=== PATIENT | male | born 1970 | race Caucasian/White ===

== ENCOUNTER 2019-01-15 20:59 | Emergency (ER) | payer MEDICARE, MEDICAID ==
[~2019-01-15] VITALS: Ht 171.6 cm; Wt 104.0 kg
--- NOTE | 2019-01-15 21:42 | ED General ---
General Chief Complaint: Abdominal/GI Problems Stated Complaint: WEAKNESS,DEHYDRATION SYMPTOMS,DIARRHEA Nursing Triage Note: PT. REPORTEDHIS WHOLE BODY HURTS, HE HAS HAD DIARREHA FOR 3 DAYS. PT. REPORTED HE USED METH A FEW DAYS AGO. Nursing Sepsis Screen: No Definite Risk Source of Information: Patient Exam Limitations: No Limitations History of Present Illness Date Seen by Provider: Jan 15, 2019 Time Seen by Provider: 21:25 Initial Comments Patient presents with 1 week of diarrhea and intermittent abdominal cramping without significant pain. Also states he's been peen about every 5 minutes and has been unusually thirsty. Currently denies any abdominal pain, nausea vomiting, fever or chills. History of colon cancer with bowel resection over one year ago. Recently saw his oncologist and had a normal CT scan just a couple weeks ago of his chest abdomen and pelvis. Fm Hx DM Allergies and Home Medications Allergies Coded Allergies: No Known Drug Allergies (Unverified , 01/15/19) Home Medications Metformin HCl 500 Mg Tablet, 500 MG PO DAILY Prescribed by: AMBER HERNANDEZ on 01/15/19 1564 Patient Home Medication List Home Medication List Reviewed: Yes Review of Systems Review of Systems Constitutional: see HPI; No fever; malaise; No weakness, No weight gain, No weight loss EENTM: no symptoms reported Respiratory: No cough, No dyspnea on exertion Cardiovascular: No chest pain, No palpitations, No syncope Gastrointestinal: No abdominal pain; diarrhea; No nausea, No vomiting Genitourinary: see HPI; No dysuria; frequency; No hematuria, No hesitancy Musculoskeletal: No back pain, No joint pain Past Zjgjhmw-Mvonug-Ivubgr Hx Past Med/Social Hx: Reviewed Nursing Past Med/Soc Hx Patient Social History Recent Foreign Travel: No Contact w/Someone Who Travel: No Recent Infectious Disease Expo: No Recent Hopitalizations: No Physical Abuse: No Sexual Abuse: No Mistreated: No Fear: No Seasonal Allergies Seasonal Allergies: No Past Medical History Surgeries: Yes Abdominal Respiratory: No Cardiac: No Neurological: No Sexually Transmitted Disease: No HIV/AIDS: No Genitourinary: No Gastrointestinal: No Musculoskeletal: Yes Fibromyalgia Endocrine: No HEENT: No Cancer: Yes Colon Did You Recieve Any Treatments: Yes What Type of Treatment Did You: Chemotherapy Psychosocial: No Integumentary: No Blood Disorders: No Physical Exam Vital Signs Vital Signs - First Documented 01/15/19 21:15 Temp 36.0 Pulse 93 Resp 20 B/P (MAP) 156/99 (118) Pulse Ox 97 O2 Delivery Room Air Capillary Refill : Less Than 3 Seconds Height, Weight, BMI Height: '" Weight: lbs. oz. kg; 35.00 BMI Method: General Appearance: No Apparent Distress, WD/WN HEENT: Normal ENT Inspection Respiratory: Chest Non Tender, Lungs Clear Cardiovascular: Regular Rate, Rhythm, No Edema Gastrointestinal: Normal Bowel Sounds, Non Tender, Distended; No Guarding, No Rebound Back: Normal Inspection, No CVA Tenderness, No Vertebral Tenderness Skin: Normal Color, Warm/Dry Progress/Results/Core Measures Suspected Sepsis Recent Fever Within 48 Hours: No Infection Criteria Present: None New/Unexplained Altered Menta: No Sepsis Screen: No Definite Risk SIRS Temperature: Pulse: 93 Respiratory Rate: 20 Laboratory Tests 01/15/19 21:44: White Blood Count 7.4 Blood Pressure 156 /99 Mean: 118 Laboratory Tests 01/15/19 21:44: Creatinine 0.81, Platelet Count 233, Total Bilirubin 0.2 Results/Orders Lab Results Laboratory Tests Test 01/15/19 21:36 01/15/19 21:44 Range/Units Urine Color YELLOW Urine Clarity CLEAR Urine pH 6.0 5-9 Urine Specific [place] 1.010 L 1.016-1.022 Urine Protein NEGATIVE NEGATIVE Urine Glucose (UA) 3+ H NEGATIVE Urine Ketones NEGATIVE NEGATIVE Urine Nitrite NEGATIVE NEGATIVE Urine Bilirubin NEGATIVE NEGATIVE Urine Urobilinogen 0.2 < = 1.0 MG/DL Urine Leukocyte Esterase NEGATIVE NEGATIVE Urine RBC (Auto) NEGATIVE NEGATIVE Urine RBC 0-2 /HPF Urine WBC NONE /HPF Urine Squamous Epithelial Cells RARE /HPF Urine Crystals NONE /LPF Urine Bacteria NEGATIVE /HPF Urine Casts NONE /LPF Urine Mucus NEGATIVE /LPF Urine Culture Indicated NO White Blood Count 7.4 4.3-11.0 10^3/uL Red Blood Count 5.02 4.35-5.85 10^6/uL Hemoglobin 15.8 13.3-17.7 G/DL Hematocrit 45 40-54 % Mean Corpuscular Volume 90 80-99 FL Mean Corpuscular Hemoglobin 31 25-34 PG Mean Corpuscular Hemoglobin Concent 35 32-36 G/DL Red Cell Distribution Width 12.6 10.0-14.5 % Platelet Count 233 130-400 10^3/uL Mean Platelet Volume 9.6 7.4-10.4 FL Neutrophils (%) (Auto) 58 42-75 % Lymphocytes (%) (Auto) 31 12-44 % Monocytes (%) (Auto) 8 0-12 % Eosinophils (%) (Auto) 3 0-10 % Basophils (%) (Auto) 1 0-10 % Neutrophils # (Auto) 4.3 1.8-7.8 X 10^3 Lymphocytes # (Auto) 2.3 1.0-4.0 X 10^3 Monocytes # (Auto) 0.6 0.0-1.0 X 10^3 Eosinophils # (Auto) 0.2 0.0-0.3 10^3/uL Basophils # (Auto) 0.0 0.0-0.1 10^3/uL Sodium Level 130 L 135-145 MMOL/L Potassium Level 4.4 3.6-5.0 MMOL/L Chloride Level 92 L 98-107 MMOL/L Carbon Dioxide Level 23 21-32 MMOL/L Anion Gap 15 H 5-14 MMOL/L Blood Urea Nitrogen 17 7-18 MG/DL Creatinine 0.81 0.60-1.30 MG/DL Estimat Glomerular Filtration Rate > 60 BUN/Creatinine Ratio 21 Glucose Level 589 *H 70-105 MG/DL Calcium Level 10.2 H 8.5-10.1 MG/DL Corrected Calcium 9.8 8.5-10.1 MG/DL Total Bilirubin 0.2 0.1-1.0 MG/DL Aspartate Amino Transf (AST/SGOT) 33 5-34 U/L Alanine Aminotransferase (ALT/SGPT) 47 0-55 U/L Alkaline Phosphatase 157 H 40-136 U/L Total Protein 8.6 H 6.4-8.2 GM/DL Albumin 4.5 3.2-4.5 GM/DL My Orders Orders - AMBER HERNANDEZ DO Ed Iv/Invasive Line Start (01/15/19 21:33) Cbc With Automated Diff (01/15/19 21:33) Comprehensive Metabolic Panel (01/15/19 21:33) Urinalysis (01/15/19 21:33) Ns Iv 1000 Ml (Sodium Chloride 0.9%) (01/15/19 22:00) Ns Iv 1000 Ml (Sodium Chloride 0.9%) (01/15/19 22:30) Ns Iv 1000 Ml (Sodium Chloride 0.9%) (01/15/19 22:30) Vital Signs/I&O 01/15/19 01/15/19 21:15 22:59 Temp 36.0 36.5 Pulse 93 88 Resp 20 20 B/P (MAP) 156/99 (118) 145/88 Pulse Ox 97 98 O2 Delivery Room Air Room Air 01/16/19 00:00 Intake Total 1000 ml Balance 1000 ml Capillary Refill : Less Than 3 Seconds Blood Pressure Mean: 118 POS Progress Note : Progress Note discussed NEW onset DM II. Spent time discussing dietary changes necessary immediately. Admits he drinks a lot of sweetened beverages. Advised f/u w PCP, Dr Hernandez in < 1 wk to discuss mgmt. of his diabetes. Discussed starting dose of Metformin to take daily Departure Impression Primary Impression: Hyperglycemia without ketosis Additional Impression: New onset type 2 diabetes mellitus Disposition: 01 HOME, SELF-CARE Condition: Improved Departure-Patient Inst. Decision time for Depature: 22:24 Referrals: NO,LOCAL PHYSICIAN (PCP/Family) Primary Care Physician Patient Instructions: Diabetes Diet , Preventing Type 2 Diabetes, Diabetic Meal Planning Scripts Metformin HCl (Glucophage) 500 Mg Tablet 500 MG PO DAILY, #30 TAB Prov: AMBER HERNANDEZ DO 01/15/19 AMBER HERNANDEZ DO Jan 15, 2019 21:42 POS
[2019-01-15 21:47] LABS: CLARITY,URINE CLEAR; COLOR,URINE YELLOW
[2019-01-15 21:48] LABS: BACTERIA,URINE NEGATIVE /HPF; BILIRUBIN,URINE NEGATIVE (NEGATIVE); GLUCOSE, URINE (UA) 3+ (NEGATIVE); KETONES,URINE NEGATIVE (NEGATIVE); LEUKOCYTE ESTERASE ,URINE NEGATIVE (NEGATIVE); NITRITE,URINE NEGATIVE (NEGATIVE); PROTEIN,URINE NEGATIVE (NEGATIVE); RBC,URINE 0-2 /HPF; SQUAMOUS EPITHELIAL CELL,UR RARE /HPF
[2019-01-15 21:49] LABS: HEMATOCRIT 45 % (40-54); HEMOGLOBIN 15.8 G/DL (13.3-17.7); MEAN CORPUSCULAR HEMOGLOBIN 31 PG (25-34); MEAN CORPUSCULAR HGB CONC 35 G/DL (32-36); MEAN CORPUSCULAR VOLUME 90 FL (80-99); PLATELET COUNT 233 10^3/uL (130-400); RED CELL DISTRIBUTION WIDTH 12.6 % (10.0-14.5); WHITE BLOOD COUNT 7.4 10^3/uL (4.3-11.0)
[2019-01-15 21:50] LABS: BASOPHILS % (AUTO) 1 % (0-10); EOSINOPHILS # (AUTO) 0.2 10^3/uL (0.0-0.3); EOSINOPHILS % (AUTO) 3 % (0-10); LYMPHOCYTES # (AUTO) 2.3 X 10^3 (1.0-4.0); LYMPHOCYTES % (AUTO) 31 % (12-44); MEAN PLATELET VOLUME 9.6 FL (7.4-10.4); MONOCYTES # (AUTO) 0.6 X 10^3 (0.0-1.0); MONOCYTES % (AUTO) 8 % (0-12); NEUTROPHILS # (AUTO) 4.3 X 10^3 (1.8-7.8); NEUTROPHILS % (AUTO) 58 % (42-75)
[2019-01-15] MEDS ORDERED: NS IV 1000 ML 1,000 ML IV SCH ×3 (22:00→22:30)
--- NOTE | 2019-01-15 22:08 | NUR ---
PT. REQUESTING WATER WHICH HE RECEIVED. PT. HAS SAID SEVERAL TIMES HE JUST WANTS TO GO BUT THEN CHANGES HIS MIND AND LETS THIS RN CONTINUE TO TREAT HIM SUCH START THE IV, GET LABS, AND GIVE IV FLUIDS.
[2019-01-15 22:10] LABS: ALANINE AMINOTRANSFERASE 47 U/L (0-55); ALKALINE PHOSPHATASE 157 U/L (40-136); BILIRUBIN,TOTAL 0.2 MG/DL (0.1-1.0); BUN/CREATININE RATIO 21; CALCIUM 10.2 MG/DL (8.5-10.1); CARBON DIOXIDE 23 MMOL/L (21-32); CHLORIDE 92 MMOL/L (98-107); CREATININE SERUM 0.81 MG/DL (0.60-1.30); GFR ESTIMATED > 60; POTASSIUM 4.4 MMOL/L (3.6-5.0); SODIUM 130 MMOL/L (135-145)
[2019-01-15 22:11] LABS: ALBUMIN 4.5 GM/DL (3.2-4.5); TOTAL PROTEIN 8.6 GM/DL (6.4-8.2)
[2019-01-15 22:12] LABS: GLUCOSE 589 MG/DL (70-105)
[2019-01-15] MEDS ORDERED: METF500T PO (22:24)
[2019-01-15 22:59] VITALS: BP 145/88
--- OUTSIDE RECORDS SUMMARY | 2019-02-10 17:37 | XMS REPORT | Continuity of Care Document ---
Author Organization Unknown Address Unknown Phone Unavailable Allergies Active Description Code Type Severity Reaction Onset Reported/Identified Relationship to Patient Clinical Status Yes No Known Drug Allergies [id number] Drug Allergy Unknown N/A 01/15/2019 Medications There is no data. Problems There is no data. Procedures There is no data. Results Test Result Range Complete urinalysis with reflex to cultu re - 01/15/19 21:36 Urine color determination YELLOW NRG Urine clarity determination CLEAR NR G Urine pH measurement by test strip 6.0 5-9 Specific gravity of urine by test strip 1.010 1.016-1.022 Urine protein assay by test strip, semi-quantitative NEGATIVE NEGATIVE Urine glucose detection by automated test strip 3+ NEGATIVE Erythrocytes detection in urine sediment by light micr oscopy NEGATIVE NEGATIVE Urine ketones detection by automated test strip NE GATIVE NEGATIVE Urine nitrite detection by test strip NEGATIVE NEGATIVE Urine total bilirubin detection by test strip NEGA TIVE NEGATIVE Urine urobilinogen measurement by automated test strip (mass/volume) 0.2 mg/dL < = 1.0 Urine leukocyte esterase detection by dipstick NEG ATIVE NEGATIVE Automated urine sediment erythrocyte cou nt by microscopy (number/high power field) [HPF] NRG Automated urine sediment leukocyte count by microscopy (number/high power field) NONE NRG Bacteria detection in urine sediment by light microsco py NEGATIVE NRG Squamous epithelial cells detection in u rine sediment by light microscopy RARE NRG Crystals detection in urine sediment by light microsco py NONE NRG Casts detection in urine sediment by light microscopy NONE NRG Mucus detection in urine sediment by light microscopy NEGATIVE NRG Complete urinalysis with reflex to culture NO NRG Complete blood count (CBC) with automate d white blood cell (WBC) differential - 01/15/19 21:44 Blood leukocytes automated count (number/volume) 7.4 10*3/uL 4.3-11.0 Blood erythrocytes automated count (number/volume) 5.02 10*6/uL 4.35-5.85 Venous blood hemoglobin measurement (mass/volume) 15.8 g/dL 13.3-17.7 Blood hematocrit (volume fraction) 45 % 40-54 Automated erythrocyte mean corpuscular volume 90 [ foz_us] 80-99 Automated erythrocyte mean corpuscular h emoglobin (mass per erythrocyte) 31 pg 25-34 Automated erythrocyte mean corpuscular h emoglobin concentration measurement (mass/volume) 35 g/dL 32-36 Automated erythrocyte distribution width ratio 12. 6 % 10.0- 14.5 Automated blood platelet count (count/volume) 233 10*3/uL 130-400 Automated blood platelet mean volume measurement 9.6 [foz_us] 7.4-10.4 Automated blood neutrophils/100 leukocytes 58 % 42-75 Automated blood lymphocytes/100 leukocytes 31 % 12-44 Blood monocytes/100 leukocytes 8 % 0-12 Automated blood eosinophils/100 leukocytes 3 % 0-10 Automated blood basophils/100 leukocytes 1 % 0-10 Blood neutrophils automated count (number/volume) 4.3 10*3 1.8-7.8 Blood lymphocytes automated count (number/volume) 2.3 10*3 1.0-4.0 Blood monocytes automated count (number/volume) 0. 6 10*3 0.0-1.0 Automated eosinophil count 0.2 10*3/uL 0 .0-0.3 Automated blood basophil count (count/volume) 0.0 10*3/uL 0.0-0.1 Comprehensive metabolic panel - 01/15/19 21:44 Serum or plasma sodium measurement (moles/volume) 130 mmol/L 135-145 Serum or plasma potassium measurement (moles/volume) 4.4 mmol/L 3.6-5.0 Serum or plasma chloride measurement (moles/volume) 92 mmol/L 98-107 Carbon dioxide 23 mmol/L 21-32 Serum or plasma anion gap determination (moles/volume) 15 mmol/L 5-14 Serum or plasma urea nitrogen measurement (mass/volume ) 17 mg/dL 7-18 Serum or plasma creatinine measurement (mass/volume) 0.81 mg/dL 0.60-1.30 Serum or plasma urea nitrogen/creatinine mass ratio 21 NRG Serum or plasma creatinine measurement w ith calculation of estimated glomerular filtration rate > NRG Serum or plasma glucose measurement (mass/volume) 589 mg/dL 70-105 Serum or plasma calcium measurement (mass/volume) 10.2 mg/dL 8.5-10.1 Serum or plasma total bilirubin measurement (mass/volu me) 0.2 mg/dL 0.1-1.0 Serum or plasma alkaline phosphatase evangelina surement (enzymatic activity/volume) 157 U/L 40-136 Serum or plasma aspartate aminotransfera se measurement (enzymatic activity/volume) 33 U/L 5-34 Serum or plasma alanine aminotransferase measurement (enzymatic activity/volume) 47 U/L 0-55 Serum or plasma protein measurement (mass/volume) 8.6 g/dL 6.4-8.2 Serum or plasma albumin measurement (mass/volume) 4.5 g/dL 3.2-4.5 CALCIUM CORRECTED 9.8 mg/dL 8.5-10.1 Capillary blood glucose measurement by g lucometer (mass/volume) - 01/15/19 22:56 Capillary blood glucose measurement by glucometer (mas s/volume) 437 mg/dL 70-110 LIPID PANEL - 01/20/19 13:15 CHOLESTEROL, TOTAL 299 mg/dL <200 HDL CHOLESTEROL 34 mg/dL >40 TRIGLYCERIDES 1522 mg/dL <150 LDL-CHOLESTEROL mg/dL (calc) NRG CHOL/HDLC RATIO 8.8 (calc) <5.0 NON HDL CHOLESTEROL 265 mg/dL (calc) <13 0 CMP - 01/20/19 13:15 GLUCOSE 455 mg/dL 65-139 UREA NITROGEN (BUN) 18 mg/dL 7-25 CREATININE 0.96 mg/dL 0.70-1.33 eGFR NON-AFR. KOSOVAN 92 mL/min/1.73m2 > OR = 60 eGFR 106 mL/min/1.73m2 > OR = 60 BUN/CREATININE RATIO NOT APPLICABLE (calc) 6-22 SODIUM 131 mmol/L 135-146 POTASSIUM 5.2 mmol/L 3.5-5.3 CHLORIDE 96 mmol/L 98-110 CARBON DIOXIDE 26 mmol/L 20-32 CALCIUM 9.3 mg/dL 8.6-10.3 PROTEIN, TOTAL 7.2 g/dL 6.1-8.1 ALBUMIN 4.0 g/dL 3.6-5.1 GLOBULIN 3.2 g/dL (calc) 1.9-3.7 ALBUMIN/GLOBULIN RATIO 1.3 (calc) 1.0-2. 5 BILIRUBIN, TOTAL 0.3 mg/dL 0.2-1.2 ALKALINE PHOSPHATASE 131 U/L 40-115 AST 22 U/L 10-35 ALT 33 U/L 9-46 INSULIN LEVEL - 01/20/19 13:17 INSULIN 16.5 uIU/mL 2.0-19.6 Encounters ACCT No. Visit Date/Time Discharge Status Pt. Type Provider Facility Loc./Unit Complaint [id number] 07/16/2018 10:00:00 07/16/2018 23:59:5 9 CLS Outpatient SELF, COTREZ [facility] [id number] 01/20/2019 11:15:00 Document Registration [id number] 01/15/2019 21:03:00 019 22:59:00 DIS Emergency AMBER HERNANDEZ DO [facility] ER FS WEAKNESS,DEHYDR ATION SYMPTOMS,DIARRHEA
== END 2019-01-15 22:59 | disposition home or self-care (01) ==
LOC: ER FS 21:03
DX: E11.65 Type 2 diabetes mellitus with hyperglycemia (principal); M79.7 Fibromyalgia; Z85.038 Personal history of other malignant neoplasm of large intestine; Z79.84 Long term (current) use of oral hypoglycemic drugs
CPT/HCPCS: 36415; 80053; 81000; 82962; 85025

== ENCOUNTER 2019-04-27 11:08 | Emergency (ER) | payer MEDICARE, MEDICAID ==
[~2019-04-27] VITALS: Ht 177 cm; Wt 103.3 kg
[~2019-04-27 11:08] MED LIST: METF500T PO
[2019-04-27] MEDS ORDERED: NS IV 1000 ML 1,000 ML IV SCH (11:30)
[2019-04-27] MEDS ORDERED: ONDANSETRON 4 MG/2 ML (SDV) Z0FRAN IVP ONE (11:30)
--- NOTE | 2019-04-27 11:37 | ED GI ---
General Chief Complaint: Abdominal/GI Problems Stated Complaint: NAUSEA Nursing Triage Note: ARRIVED VIA AMB TO ROOM 06 WITH COMPLAINTS OF N/D STARTING YESTERDAY. STATES HIS BREATH TASTES LIKES EGGS. Sepsis Screen: No Definite Risk Source of Information: Patient Exam Limitations: No Limitations History of Present Illness Date Seen by Provider: Apr 27, 2019 Time Seen by Provider: 11:10 Initial Comments The patient is a 48-year-old male who presents for evaluation of nausea and diarrhea (1 episode only) which started yesterday. He reports that he is a eze-dzjvxym-ysvoxhchd diabetic and has not checked his blood sugar in "a while". His blood sugar upon arrival was 138. He reports nausea but no vomiting. He was having some non-focal mild abdominal discomfort yesterday but none currently. He denies fevers or chills, chest pain or shortness of breath, back or flank pain, urinary complaints, dizziness, palpitations, productive cough, headache, neck pain, or syncope. He states that he feels fatigued. He is alert and oriented 4, calm, and appears to be in no distress at this time. He also reports a followed her to his breath. Timing/Duration: 1 Day Severity/Quality: Moderate Location: Generalized Abdomen (mild, not currently present) Radiation: No Radiation Associated Symptoms: Fatigue, Nausea/Vomiting (nausea only) Allergies and Home Medications Allergies Coded Allergies: No Known Drug Allergies (Unverified , 01/15/19) Home Medications Metformin HCl 500 Mg Tablet, 500 MG PO DAILY Prescribed by: AMBER HERNANDEZ on 01/15/19 7393 Patient Home Medication List Home Medication List Reviewed: Yes Review of Systems Review of Systems Constitutional: weakness (fatigue) EENTM: No Symptoms Reported Respiratory: No Symptoms Reported; Denies Shortness of Air Cardiovascular: No Symptoms Reported; Denies Chest Pain Gastrointestinal: Abdominal Pain (yesterday, not currently), Nausea; Denies Vomiting Genitourinary: No Symptoms Reported Musculoskeletal: no symptoms reported Skin: no symptoms reported Endocrine: No Symptoms Reported Hematologic/Lymphatic: No Symptoms Reported All Other Systems Reviewed Negative Unless Noted: Yes Past Orupwvd-Nwdtwd-Mfnfjv Hx Past Med/Social Hx: Reviewed Nursing Past Med/Soc Hx Patient Social History Alcohol Use: Denies Use Recreational Drug Use: Yes Drug of Choice: POT Smoking Status: Current Everyday Smoker Recent Foreign Travel: No Contact w/Someone Who Travel: No Recent Infectious Disease Expo: No Recent Hopitalizations: No Seasonal Allergies Seasonal Allergies: No Past Medical History Surgeries: Yes Abdominal Respiratory: No Cardiac: No Neurological: No Sexually Transmitted Disease: No HIV/AIDS: No Genitourinary: No Gastrointestinal: No Musculoskeletal: Yes Fibromyalgia Endocrine: Yes Diabetes, Non-Insulin dep HEENT: No Cancer: Yes Colon Did You Recieve Any Treatments: Yes What Type of Treatment Did You: Chemotherapy Psychosocial: No Integumentary: No Blood Disorders: No Physical Exam Vital Signs Vital Signs - First Documented 04/27/19 11:15 Temp 36.4 Pulse 76 Resp 16 O2 Delivery Room Air Capillary Refill : Less Than 3 Seconds Height/Weight/BMI Height: '" Weight: lbs. oz. kg; 32.00 BMI Method: General Appearance: WD/WN, no apparent distress HEENT: PERRL/EOMI, pharynx normal Neck: non-tender, full range of motion Respiratory: chest non-tender, lungs clear, normal breath sounds, no respiratory distress Cardiovascular: regular rate, rhythm, no edema, no JVD Gastrointestinal: normal bowel sounds, non tender, soft, no pulsatile mass Extremities: normal range of motion, non-tender, normal inspection, no pedal edema Back: normal inspection, no CVA tenderness Neurologic/Psychiatric: special services director II-XII nml as tested, no motor/sensory deficits, alert, normal mood/affect, oriented x 3 Skin: normal color, warm/dry Progress/Results/Core Measures Results/Orders Lab Results Laboratory Tests Test 04/27/19 11:19 04/27/19 11:25 Range/Units Glucometer 138 H 70-110 MG/DL White Blood Count 10.2 4.3-11.0 10^3/uL Red Blood Count 4.75 4.35-5.85 10^6/uL Hemoglobin 14.8 13.3-17.7 G/DL Hematocrit 45 40-54 % Mean Corpuscular Volume 94 80-99 FL Mean Corpuscular Hemoglobin 31 25-34 PG Mean Corpuscular Hemoglobin Concent 33 32-36 G/DL Red Cell Distribution Width 13.8 10.0-14.5 % Platelet Count 196 130-400 10^3/uL Mean Platelet Volume 9.3 7.4-10.4 FL Neutrophils (%) (Auto) 74 42-75 % Lymphocytes (%) (Auto) 16 12-44 % Monocytes (%) (Auto) 7 0-12 % Eosinophils (%) (Auto) 2 0-10 % Basophils (%) (Auto) 0 0-10 % Neutrophils # (Auto) 7.5 1.8-7.8 X 10^3 Lymphocytes # (Auto) 1.7 1.0-4.0 X 10^3 Monocytes # (Auto) 0.7 0.0-1.0 X 10^3 Eosinophils # (Auto) 0.2 0.0-0.3 10^3/uL Basophils # (Auto) 0.0 0.0-0.1 10^3/uL Micro Results Microbiology 04/27/19 Influenza Types A,B Antigen (JENNIFER) - Final, Complete My Orders Orders - DERRICK ALCARAZ DO Comprehensive Metabolic Panel (04/27/19 11:20) Lipase (04/27/19 11:20) Ua Culture If Indicated (04/27/19 11:20) Ed Iv/Invasive Line Start (04/27/19 11:20) Cbc With Automated Diff (04/27/19 11:20) Troponin I Fs (04/27/19 11:20) Probnp Fs (04/27/19 11:20) Ekg Tracing (04/27/19 11:20) Influenza A And B Antigens (04/27/19 11:20) Ondansetron Injection (Zofran Injectio (04/27/19 11:30) Ns Iv 1000 Ml (Sodium Chloride 0.9%) (04/27/19 11:30) Ct Abdomen/Pelvis W (04/27/19 11:55) Medications Given in ED Current Medications Medications Dose Ordered Sig/Grace Route Start Time Stop Time Status Last Admin Dose Admin Ondansetron HCl 4 mg ONCE ONCE IVP 04/27/19 11:30 04/27/19 11:31 DC 04/27/19 11:29 4 MG Vital Signs/I&O 04/27/19 11:15 Temp 36.4 Pulse 76 Resp 16 B/P (MAP) O2 Delivery Room Air FSBG Bedside Testing Finger Stick Blood Glucose: 138 Progress Progress Note : Progress Note @1225 - the patient declines the CT of his abdomen and pelvis stating that he has an outpatient one scheduled for tomorrow. He then states that he would like to leave the emergency department. Explained the patient that I would like to perform the CT of his abdomen and pelvis because of his complaints for a complete evaluation. He expresses understanding that wants to leave AGAINST MEDICAL ADVICE. He has decision-making capacity at this time and believes from the emergency department after signing the paperwork. Comment @1131 - Normal sinus rhythm, rate of 67, normal axis, no acute ischemic findings noted, no STEMI, reviewed and interpreted by myself Departure Impression Primary Impression: Nausea alone Additional Impressions: Diarrhea Breath odor Disposition: AGAINST MEDICAL ADVICE Condition: Stable Departure-Patient Inst. Decision time for Depature: 12:25 Referrals: SELFCORTEZ MD (PCP/Family) Primary Care Physician Patient Instructions: Bad Breath, Nausea and Vomiting, Adult, Diarrhea in Adolescents and Adults Add. Discharge Instructions: Patient advised to return to the emergency Department immediately for new or worsening symptoms and to follow up with his doctor in the next 1-2 days. DERRICK ALCARAZ DO Apr 27, 2019 11:37
[2019-04-27 11:41] LABS: HEMATOCRIT 45 % (40-54); HEMOGLOBIN 14.8 G/DL (13.3-17.7); MEAN CORPUSCULAR HEMOGLOBIN 31 PG (25-34); MEAN CORPUSCULAR HGB CONC 33 G/DL (32-36); MEAN CORPUSCULAR VOLUME 94 FL (80-99); MEAN PLATELET VOLUME 9.3 FL (7.4-10.4); PLATELET COUNT 196 10^3/uL (130-400); RED CELL DISTRIBUTION WIDTH 13.8 % (10.0-14.5); WHITE BLOOD COUNT 10.2 10^3/uL (4.3-11.0)
[2019-04-27 11:42] LABS: BASOPHILS % (AUTO) 0 % (0-10); EOSINOPHILS # (AUTO) 0.2 10^3/uL (0.0-0.3); EOSINOPHILS % (AUTO) 2 % (0-10); LYMPHOCYTES # (AUTO) 1.7 X 10^3 (1.0-4.0); LYMPHOCYTES % (AUTO) 16 % (12-44); MONOCYTES # (AUTO) 0.7 X 10^3 (0.0-1.0); MONOCYTES % (AUTO) 7 % (0-12); NEUTROPHILS # (AUTO) 7.5 X 10^3 (1.8-7.8); NEUTROPHILS % (AUTO) 74 % (42-75)
--- NOTE | 2019-04-27 11:45 | NUR ---
PT HAS A FOUL SULFURIC SMELL WHEN HE BURPS. DR AMARO.
[2019-04-27] MEDS ORDERED: PALI3TAB2 (11:55)
[2019-04-27] MEDS ORDERED: ROSU40TA23 (11:55)
[2019-04-27] MEDS ORDERED: BENZ1TAB6 (11:55)
[2019-04-27] MEDS ORDERED: METF-399 (11:55)
[2019-04-27] MEDS ORDERED: CARB200T6 (11:55)
[2019-04-27] MEDS ORDERED: GABA-488 (11:55)
[2019-04-27] MEDS ORDERED: CITA40TA19 (11:55)
--- NOTE | 2019-04-27 12:20 | NUR ---
PT STATES HE FEELS BETTER ET WANTS TO LEAVE. NOTIFIED HIM THAT DR WANTED TO DUE A CT OF HIS ABD FOR THE CONCERNS OF HIS SULFER SMELLS COMING FROM HIS MOUTH. PT STATES HE IS SCHEDULED FOR A CT TOMORROW AT AND WANTS TO LEAVE. DR NOTIFIED.
[2019-04-27 12:29] LABS: ALANINE AMINOTRANSFERASE 29 U/L (0-55); ALKALINE PHOSPHATASE 105 U/L (40-136); BILIRUBIN,TOTAL < 0.2 MG/DL (0.1-1.0); BUN/CREATININE RATIO 18; CALCIUM 9.8 MG/DL (8.5-10.1); CARBON DIOXIDE 24 MMOL/L (21-32); CHLORIDE 99 MMOL/L (98-107); CREATININE SERUM 0.77 MG/DL (0.60-1.30); GFR ESTIMATED > 60; GLUCOSE 151 MG/DL (70-105); POTASSIUM 4.4 MMOL/L (3.6-5.0); SODIUM 137 MMOL/L (135-145); TOTAL PROTEIN 7.8 GM/DL (6.4-8.2)
[2019-04-27 12:30] LABS: ALBUMIN 4.4 GM/DL (3.2-4.5); LIPASE 13 U/L (8-78)
[2019-04-27] MEDS ORDERED: DICY20TA10 PO (20:18)
[2019-04-27] MEDS ORDERED: ONDA4TAB11 PO (20:18)
--- OUTSIDE RECORDS SUMMARY | 2019-04-29 13:13 | XMS REPORT | Continuity of Care Document ---
Author Organization Unknown Address Unknown Phone Unavailable Allergies Active Description Code Type Severity Reaction Onset Reported/Identified Relationship to Patient Clinical Status Yes No Known Drug Allergies [id number] Drug Allergy Unknown N/A 01/15/2019 Medications There is no data. Problems Date Dx Coded Attending Type Code Diagnosis Diagnosed By 01/15/2019 AMBER HERNANDEZ DO Ot E11.65 TYPE 2 DIABETES MELLITUS WITH HYPERGLYCE 01/15/2019 MELISSASTINE AMBER TIDWELL Ot M79.7 FIBROMYALGIA 01/15/2019 MELISSASTAMBER LUU DO Ot R53.1 WEAKNESS 01/15/2019 MELISSASTAMBER LUU DO Ot Z79.84 CUSTODIAL (CURRENT) USE OF ORAL HYPOGLYC 01/15/2019 MELISSASTINE AMBER TIDWELL Ot Z85.038 PERSONAL HISTORY OF MALIGNANT NEOPLASM O Procedures There is no data. Results Test [...] 7-25 CREATININE 0.96 mg/dL 0.70-1.33 eGFR NON-AFR. [place] 92 mL/min/1.73m2 > OR = 60 eGFR [...] - 01/20/19 13:17 INSULIN 16.5 uIU/mL 2.0-19.6 Capillary blood glucose measurement by g lucometer (mass/volume) - 04/27/19 11:19 Capillary blood glucose measurement by glucometer (mas s/volume) 138 mg/dL 70-110 Influenza virus A and B antigen detectio n - 04/27/19 11:20 FLU RESULT NEGATIVE FOR INFLUENZA A AND B ANTIGENS BY IA [facility] Complete blood count (CBC) with automate d white blood cell (WBC) differential - 04/27/19 11:25 Blood leukocytes automated count (number/volume) 10.2 10*3/uL 4.3-11.0 Blood erythrocytes automated count (number/volume) 4.75 10*6/uL 4.35-5.85 Venous blood hemoglobin measurement (mass/volume) 14.8 g/dL 13.3-17.7 Blood hematocrit (volume fraction) 45 % 40-54 Automated erythrocyte mean corpuscular volume 94 [ foz_us] 80-99 Automated erythrocyte mean corpuscular h emoglobin (mass per erythrocyte) 31 pg 25-34 Automated erythrocyte mean corpuscular h emoglobin concentration measurement (mass/volume) 33 g/dL 32-36 Automated erythrocyte distribution width ratio 13. 8 % 10.0- 14.5 Automated blood platelet count (count/volume) 196 10*3/uL 130-400 Automated blood platelet mean volume measurement 9.3 [foz_us] 7.4-10.4 Automated blood neutrophils/100 leukocytes 74 % 42-75 Automated blood lymphocytes/100 leukocytes 16 % 12-44 Blood monocytes/100 leukocytes 7 % 0-12 Automated blood eosinophils/100 leukocytes 2 % 0-10 Automated blood basophils/100 leukocytes 0 % 0-10 Blood neutrophils automated count (number/volume) 7.5 10*3 1.8-7.8 Blood lymphocytes automated count (number/volume) 1.7 10*3 1.0-4.0 Blood monocytes automated count (number/volume) 0. 7 10*3 0.0-1.0 Automated eosinophil count 0.2 10*3/uL 0 .0-0.3 Automated blood basophil count (count/volume) 0.0 10*3/uL 0.0-0.1 Comprehensive metabolic panel - 04/27/19 11:25 Serum or plasma sodium measurement (moles/volume) 137 mmol/L 135-145 Serum or plasma potassium measurement (moles/volume) 4.4 mmol/L 3.6-5.0 Serum or plasma chloride measurement (moles/volume) 99 mmol/L 98-107 Carbon dioxide 24 mmol/L 21-32 Serum or plasma anion gap determination (moles/volume) 14 mmol/L 5-14 Serum or plasma urea nitrogen measurement (mass/volume ) 14 mg/dL 7-18 Serum or plasma creatinine measurement (mass/volume) 0.77 mg/dL 0.60-1.30 Serum or plasma urea nitrogen/creatinine mass ratio 18 NRG Serum or plasma creatinine measurement w ith calculation of estimated glomerular filtration rate > NRG Serum or plasma glucose measurement (mass/volume) 151 mg/dL 70-105 Serum or plasma calcium measurement (mass/volume) 9.8 mg/dL 8.5-10.1 Serum or plasma total bilirubin measurement (mass/volu me) < mg/dL 0.1-1.0 Serum or plasma alkaline phosphatase evangelina surement (enzymatic activity/volume) 105 U/L 40-136 Serum or plasma aspartate aminotransfera se measurement (enzymatic activity/volume) 22 U/L 5-34 Serum or plasma alanine aminotransferase measurement (enzymatic activity/volume) 29 U/L 0-55 Serum or plasma protein measurement (mass/volume) 7.8 g/dL 6.4-8.2 Serum or plasma albumin measurement (mass/volume) 4.4 g/dL 3.2-4.5 CALCIUM CORRECTED 9.5 mg/dL 8.5-10.1 Lipase - 04/27/19 11:25 Lipase 13 U/L 8-78 TROPONIN I FS - 04/27/19 11:25 TROPONIN I FS < 0.30 <0.30 PROBNP FS - 04/27/19 11:25 PROBNP FS 11.1 pg/mL <75.0 Encounters ACCT No. Visit Date/Time Discharge Status Pt. Type Provider Facility Loc./Unit Complaint [id number] 07/16/2018 10:00:00 07/16/2018 23:59:5 9 [facility] Outpatient SELF, CORTEZ Mock [facility] [id number] 01/20/2019 11:15:00 Document Registration [id number] 04/27/2019 19:46:00 20:44:00 DIS Emergency JANEY WASHUBRN MD Via [facility] ER FS CHILLS,VOMITING [id number] 04/27/2019 11:09:00 020 12:21:00 DIS Emergency LISSA MEZA DO Via [facility] ER FS NAUSEA [id number] 01/15/2019 21:03:00 019 22:59:00 DIS Emergency SILVIAVENSTAMBER LUU DO Via [facility] ER FS WEAKNESS,DEHYDR ATION SYMPTOMS,DIARRHEA
== END 2019-04-27 12:21 | disposition left against medical advice (07) ==
LOC: EDUNIT# 11:08 → ER FS 11:09
DX: R11.0 Nausea (principal); R19.7 Diarrhea, unspecified; R19.6 Halitosis; E11.9 Type 2 diabetes mellitus without complications; F17.200 Nicotine dependence, unspecified, uncomplicated; Z79.84 Long term (current) use of oral hypoglycemic drugs; Z85.038 Personal history of other malignant neoplasm of large intestine
CPT/HCPCS: 36415; 80053; 82962; 83690; 83880; 84484; 85025; 87804; 93005

== ENCOUNTER 2019-04-27 19:45 | Emergency (ER) | payer MEDICARE, MEDICAID ==
[~2019-04-27] VITALS: Ht 169 cm; Wt 103.2 kg
[~2019-04-27 19:45] MED LIST changes: +BENZ1TAB6; +CARB200T6; +CITA40TA19; +GABA-488; +METF-399; +PALI3TAB2; +ROSU40TA23
[2019-04-27] MEDS ORDERED: ONDANSETRON 4 MG (ZOFRAN) ORAL DISSOLVE TAB PO STA (20:09)
[2019-04-27] MEDS ORDERED: DICYCLOMINE 10 MG/ML (BENTYL) 2 ML AMP IM STA (20:09)
--- NOTE | 2019-04-27 20:16 | ED Abdominal Pain ---
General Chief Complaint: Abdominal/GI Problems Stated Complaint: CHILLS,VOMITING History of Present Illness Date Seen by Provider: Apr 27, 2019 Time Seen by Provider: 20:11 Initial Comments This patient is a 48-year-old male who presents to the emergency department after leaving from a visit from 2 hours ago. Patient same complaint of nausea and vomiting and loose stool. Abdominal cramping. Patient was having a medical evaluation in the emergency department states he also does resolve after medication interaction left against medical advise prior to. Patient has a history of colon cancer the patient does not appear to be acutely sick and patient states that he has a scheduled appointment with his PCP tomorrow for his general yearly exam and CT scan. Patient has normal bowel sounds. Abdomen is nontender. Patient is requesting additional nausea medication. I did discuss with the patient about his chronic issues. Including his previous visit today. Patient has had fluid boluses earlier today. Patient states he been doing well other than 15 minutes prior to arrival. Patient left without any prescriptions. We did discuss options. Patient be given a prescription for Zofran and will be given one tablet here in the emergency part. Patient also be given a prescription for Bentyl. Patient is being followed up by his PCP tomorrow patient is discharged home. Please see previous chart for full evaluation of this patient. Timing/Duration: 1/2 Hour Severity/Quality: Moderate, Cramping Radiation: No Radiation Activities at Onset: None Associated Symptoms: No Denies Symptoms, No Back Pain, No Chest Pain, No Diaphoresis, No Fever/Chills, No Fatigue, No Headache, No Heartburn; Nausea/Vomiting; No Rash, No Shortness of Air, No Swelling/Mass in Abdomen, No Syncope, No Weakness, No Other Allergies and Home Medications Allergies Coded Allergies: No Known Drug Allergies (Unverified , 01/15/19) Home Medications Dicyclomine HCl 20 Mg Tablet, 20 MG PO TID Prescribed by: JANEY WASHBURN on 04/27/192017 Metformin HCl 500 Mg Tablet, 500 MG PO DAILY Prescribed by: AMBER HERNANDEZ on 01/15/192223 Ondansetron 4 Mg Tab.rapdis, 4 MG PO NEEDED PRN for NAUSEA/VOMITING-1ST LINE Prescribed by: JANEY WASHBURN on 04/27/192017 Patient Home Medication List Home Medication List Reviewed: Yes Review of Systems Review of Systems Constitutional: No no symptoms reported, No see HPI, No chills, No diaphoresis, No dizziness, No fever, No malaise, No weakness, No weight gain, No weight loss, No other EENTM: No No Symptoms Reported, No See HPI, No Blurred Vision, No Double Vision, No Eye Pain, No Eye Tearing, No Ear Drainage, No Ear Pain, No Mouth Pain, No Mouth Swelling, No Nose Congestion, No Nose Pain, No Throat Pain, No Throat Swelling, No Other Respiratory: No Symptoms Reported, See HPI; Denies Cough, Denies Orthopnea, Denies Shortness of Air, Denies SOA With Exertion, Denies SOA at Rest, Denies Stridor, Denies Wheezing, Denies Other Cardiovascular: No Symptoms Reported, See HPI Gastrointestinal: See HPI, Diarrhea, Nausea, Vomiting Genitourinary: No Symptoms Reported, See HPI Musculoskeletal: no symptoms reported, see HPI Skin: no symptoms reported All Other Systems Reviewed Negative Unless Noted: Yes Past Jjxgbyc-Jjvdqa-Ogestq Hx Patient Social History Drug of Choice: POT Recent Foreign Travel: No Contact w/Someone Who Travel: No Recent Hopitalizations: No Seasonal Allergies Seasonal Allergies: No Past Medical History Surgeries: Yes Abdominal Respiratory: No Cardiac: No Neurological: No Sexually Transmitted Disease: No HIV/AIDS: No Genitourinary: No Gastrointestinal: No Musculoskeletal: Yes Fibromyalgia Endocrine: Yes Diabetes, Non-Insulin dep HEENT: No Cancer: Yes Colon Did You Recieve Any Treatments: Yes What Type of Treatment Did You: Chemotherapy Psychosocial: No Integumentary: No Blood Disorders: No Physical Exam Vital Signs Vital Signs - First Documented 04/27/19 20:00 Temp 36.0 Pulse 91 Resp 18 B/P (MAP) 130/72 (91) O2 Delivery Room Air Capillary Refill : Height/Weight/BMI Height: '" Weight: lbs. oz. kg; 32.00 BMI Method: General Appearance: WD/WN, no apparent distress HEENT: PERRL/EOMI, normal ENT inspection, TMs normal, pharynx normal Neck: non-tender, full range of motion, supple, normal inspection Respiratory: chest non-tender, lungs clear, normal breath sounds, no respiratory distress, no accessory muscle use Cardiovascular: normal peripheral pulses, regular rate, rhythm, no edema, no gallop, no JVD, no murmur Peripheral Pulses: 2+ Carotid (R), 2+ Carotid (L), 2+ Femoral (R), 2+ Femoral (L), 2+ Dorsalis Pedis (R), 2+ Left Dors-Pedis (L), 2+ Radial Pulses (R), 2+ Radial Pulses (L) Gastrointestinal: normal bowel sounds, non tender, soft, no organomegaly, no pulsatile mass Extremities: normal range of motion, non-tender, normal inspection, no pedal edema, no calf tenderness, normal capillary refill, pelvis stable Skin: normal color, warm/dry Progress/Results/Core Measures Results/Orders My Orders Orders - JANEY WASHBURN MD Ondansetron Oral Dissolve Tab (Zofran (04/27/19 20:09) Dicyclomine Injection (Bentyl Injection) (04/27/19 20:09) Abdomen Flat & Upright/Decub (04/27/19 20:19) Vital Signs/I&O 04/27/19 20:00 Temp 36.0 Pulse 91 Resp 18 B/P (MAP) 130/72 (91) O2 Delivery Room Air Diagnostic Imaging Diagonstic Imaging: Xray Plain Films/CT/US/NM/MRI: abdomen Comments Distended abdomen with significant gas. Patient has bowel movements. Concern of possible colitis viral gastroenteritis. Departure Impression Primary Impression: Nausea and vomiting Additional Impressions: Diarrhea Abdominal pain Disposition: 01 HOME, SELF-CARE Condition: Stable Departure-Patient Inst. Decision time for Depature: 20:14 Referrals: CORTEZ MONTIEL MD (PCP/Family) Primary Care Physician Patient Instructions: Nausea and Vomiting, Adult Add. Discharge Instructions: Encourage by mouth fluids. Bentyl as needed for abdominal pain Zofran as needed for nausea and vomiting. May take Pepto-Bismol Follow-up with her primary care physician tomorrow as scheduled. All discharge instructions reviewed with patient and/or family. Voiced understanding. Scripts Ondansetron (Ondansetron Odt) 4 Mg Tab.rapdis 4 MG PO NEEDED PRN for NAUSEA/VOMITING-1ST LINE for 7 Days, #10 TAB 0 Refills Prov: JANEY WASHBURN MD 04/27/19 Dicyclomine HCl (Dicyclomine HCl) 20 Mg Tablet 20 MG PO TID for Pain for 7 Days, #10 TAB 0 Refills Prov: JANEY WASHBURN MD 04/27/19 JANEY WASHBURN MD Apr 27, 2019 20:16
[2019-04-27] MEDS ORDERED: DICY20TA10 PO (20:18)
[2019-04-27] MEDS ORDERED: ONDA4TAB11 PO (20:18)
--- NOTE | 2019-04-27 20:35 | Diagnostic Imaging Report ---
INDICATION: Nausea and vomiting earlier today. Left AMA but returned with nausea, vomiting and diarrhea. FINDINGS: Supine and upright views of the abdomen demonstrate a gaseous colon with a few air-fluid levels. Possible colitis. The stomach is mildly distended. Small bowel loops appear normal. IMPRESSION: There is gaseous colon with some air-fluid levels. Possible colitis or an ileus. The stomach is also mildly distended. Dictated by: Dictated on workstation # [id number]
[2019-04-27 20:42] VITALS: BP 130/72
--- OUTSIDE RECORDS SUMMARY | 2019-04-29 22:58 | XMS REPORT | Continuity of Care Document ---
Author Organization Unknown Address Unknown Phone Unavailable Allergies Active Description Code Type Severity Reaction Onset Reported/Identified Relationship to Patient Clinical Status Yes No Known Drug Allergies [id number] Drug Allergy Unknown N/A 01/15/2019 Medications There is no data. Problems Date Dx Coded Attending Type Code Diagnosis Diagnosed By 01/15/2019 AMBER HERNANDEZ DO Ot E11.65 TYPE 2 DIABETES MELLITUS WITH HYPERGLYCE 01/15/2019 MELISSASTINE AMBER TIDWELL Ot M79.7 FIBROMYALGIA 01/15/2019 MELISSASTAMBER LUU DO Ot R53.1 WEAKNESS 01/15/2019 MEILSSASTAMEBR LUU DO Ot Z79.84 NURSING HOME (CURRENT) USE OF ORAL HYPOGLYC 01/15/2019 MELISSASTINE [...] 7-25 CREATININE 0.96 mg/dL 0.70-1.33 eGFR NON-AFR. CITIZEN [place] 92 mL/min/1.73m2 > OR = 60 eGFR [...] INFLUENZA A AND B ANTIGENS BY IA [facility] Complete blood count (CBC) with automate d [...] Status Pt. Type Provider Facility Loc./Unit Complaint [id number] 07/16/2018 10:00:00 07/16/2018 23:59:5 9 [facility] Outpatient SELF, CORTEZ Mock [facility] [id number] 01/20/2019 11:15:00 Document Registration [id number] 04/27/2019 19:46:00 20:44:00 DIS Emergency JANEY WASHBURN MD Via [facility] ER FS CHILLS,VOMITING [id number] 04/27/2019 11:09:00 020 12:21:00 DIS Emergency LISSA MEZA DO Via [facility] ER FS NAUSEA [id number] 01/15/2019 21:03:00 019 22:59:00 DIS Emergency SILVIAVENSTAMBER LUU DO Via [facility] ER FS WEAKNESS,DEHYDR ATION SYMPTOMS,DIARRHEA
== END 2019-04-27 20:44 | disposition home or self-care (01) ==
LOC: EDUNIT# 19:45 → ER FS 19:46
DX: R11.2 Nausea with vomiting, unspecified (principal); R19.7 Diarrhea, unspecified; R10.9 Unspecified abdominal pain; E11.9 Type 2 diabetes mellitus without complications; Z85.038 Personal history of other malignant neoplasm of large intestine; Z79.84 Long term (current) use of oral hypoglycemic drugs
CPT/HCPCS: 74019

== ENCOUNTER 2019-08-31 15:10 | Emergency (ER) | payer MEDICARE, MEDICAID ==
[~2019-08-31] VITALS: Ht 170.2 cm; Wt 103.0 kg
[~2019-08-31 15:10] MED LIST changes: +DICY20TA10 PO; +ONDA4TAB11 PO
[2019-08-31 15:27] VITALS: BP_SYST 134; BP_SYST 139; BP_SYST 154; BP_DIAS 79; BP_DIAS 83; BP_DIAS 87
--- NOTE | 2019-08-31 15:28 | ED General ---
General Chief Complaint: Dizziness/Syncope Stated Complaint: DIZZY Source of Information: Patient, RN/MD History of Present Illness Date Seen by Provider: Aug 31, 2019 Time Seen by Provider: 15:20 Initial Comments This patient is a 49-year-old male presents to the emerge department complaining little bit of dizziness this morning. Patient states he went to the gym this morning and worked up pretty hard but did not eat before going to the gym a little dizzy and lightheaded afterward. Patient states is doing much better now going to the clinic for evaluation and advise him and will be here. Patient and place without difficulty does not appear to be acutely sick. Patient states he still has not ate today or had anything to drink glucose on arrival was 199. Patient has multiple vague complaints and does not have any specific complaints other than some mild lightheadedness. Patient states he has had some of this in the past. Options. Patient is agreeable to have orthostatic blood pressures done and they will give the patient some juice and monitor closely. Patient does not wish to have a further evaluation other than that at this time. Patient was offered full medical screening exam was declined. Severity: Mild Allergies and Home Medications Allergies Coded Allergies: No Known Drug Allergies (Unverified , 01/15/19) Home Medications Dicyclomine HCl 20 Mg Tablet, 20 MG PO TID Prescribed by: JANEY WASHBURN on 04/27/192017 Metformin HCl 500 Mg Tablet, 500 MG PO DAILY Prescribed by: AMBER HERNANDEZ on 01/15/194 Ondansetron 4 Mg Tab.rapdis, 4 MG PO NEEDED PRN for NAUSEA/VOMITING-1ST LINE Prescribed by: JANEY WASHBURN on 04/27/192017 Patient Home Medication List Home Medication List Reviewed: Yes Review of Systems Review of Systems Constitutional: No no symptoms reported, No see HPI, No chills, No diaphoresis; dizziness; No fever, No malaise, No weakness, No weight gain, No weight loss, No other EENTM: No see HPI, No no symptoms reported, No ear discharge, No hearing loss, No ear pain, No blurred vision, No double vision, No eye pain, No tearing, No vision loss, No dental problems, No hoarseness, No mouth pain, No mouth swelling, No epistaxis, No nose congestion, No nose pain, No throat pain, No thr oat swelling, No other Respiratory: No no symptoms reported, No see HPI, No cough, No dyspnea on exertion, No hemoptysis, No orthopnea, No phlegm, No short of breath, No stridor, No wheezing, No other Gastrointestinal: No RUQ, No LUQ, No RLQ, No LLQ, No no symptoms reported, No see HPI, No abdominal pain, No constipation, No diarrhea, No dysphagia, No hematemesis, No heartburn, No jaundice, No loss of appetite, No melena, No nausea, No vomiting, No other Genitourinary: No no symptoms reported, No see HPI, No decreased output, No discharge, No dysuria, No frequency, No hematuria, No hesitancy, No incontinence, No nocturia, No pain, No other Musculoskeletal: No no symptoms reported, No see HPI, No back pain, No gout, No joint pain, No joint swelling, No muscle pain, No muscle stiffness, No muscle cr amps, No muscle twitching, No muscle weakness, No neck pain, No other Skin: No no symptoms reported, No see HPI, No change in color, No change in hair/nails, No dryness, No hx of skin cancer, No lesions, No lumps, No pruritus, No rash, No other All Other Systems Reviewed Negative Unless Noted: Yes Past Imtttgr-Dseggc-Llbnse Hx Patient Social History Drug of Choice: POT Recent Foreign Travel: No Contact w/Someone Who Travel: No Recent Hopitalizations: No Seasonal Allergies Seasonal Allergies: No Past Medical History Surgeries: Yes Abdominal Respiratory: No Cardiac: No Neurological: No Sexually Transmitted Disease: No HIV/AIDS: No Genitourinary: No Gastrointestinal: No Musculoskeletal: Yes Fibromyalgia Endocrine: Yes Diabetes, Non-Insulin dep HEENT: No Cancer: Yes Colon Did You Recieve Any Treatments: Yes What Type of Treatment Did You: Chemotherapy Psychosocial: No Integumentary: No Blood Disorders: No Physical Exam Vital Signs Vital Signs - First Documented 08/31/19 15:22 Temp 36.9 Pulse 88 Resp 16 B/P (MAP) 124/90 (101) Pulse Ox 97 O2 Delivery Room Air Capillary Refill : Height, Weight, BMI Height: '" Weight: lbs. oz. kg; 36.00 BMI Method: General Appearance: No Apparent Distress, WD/WN HEENT: PERRL/EOMI, TMs Normal, Normal ENT Inspection, Pharynx Normal Neck: Full Range of Motion, Normal Inspection, Non Tender, Supple Respiratory: Chest Non Tender, Lungs Clear, Normal Breath Sounds, No Accessory Muscle Use, No Respiratory Distress Cardiovascular: Regular Rate, Rhythm, No Edema, No Gallop, No JVD, No Murmur, Normal Peripheral Pulses Gastrointestinal: Normal Bowel Sounds, No Organomegaly, No Pulsatile Mass, Non Tender, Soft Extremity: Normal Capillary Refill, Normal Inspection, Normal Range of Motion, Non Tender, No Calf Tenderness, No Pedal Edema Neurologic/Psychiatric: Alert, Oriented x3, No Motor/Sensory Deficits, Normal Mood/Affect Skin: Normal Color, Warm/Dry Progress/Results/Core Measures Suspected Sepsis SIRS Temperature: Pulse: Respiratory Rate: Blood Pressure / Mean: Results/Orders My Orders Orders - JANEY WASHBURN MD Orthostatic Vital Signs (Adult (08/31/19 15:25) Vital Signs/I&O 08/31/19 08/31/19 15:22 15:27 Temp 36.9 Pulse 88 86 89 91 Resp 16 B/P (MAP) 124/90 (101) 134/79 (97) 154/87 (109) 139/83 (101) Pulse Ox 97 O2 Delivery Room Air Capillary Refill : Progress Note : Time: 15:49 Progress Note Orthostatic vitals are stable. Patient is be given juice glucose is elevated up to 110 patient states symptoms resolved and feeling much better. Patient does have good male monitor sugars closely and avoid hypoglycemia. Patient states understanding he will be discharged home Departure Impression Primary Impression: Dizziness Disposition: 01 HOME, SELF-CARE Condition: Stable Departure-Patient Inst. Decision time for Depature: 15:49 Referrals: CORTEZ MONTIEL MD (PCP/Family) Primary Care Physician Patient Instructions: Dizziness, Nonvertigo, (DC), HYPOGLYCEMIA Add. Discharge Instructions: Encourage by mouth fluids. May she a good meal monitor glucose level regularly avoid hypoglycemia. Avoid excessive working out without a meal or juices. Follow-up with PCP in 2-3 days All discharge instructions reviewed with patient and/or family. Voiced understanding. JANEY WASHBURN MD Aug 31, 2019 15:28
--- OUTSIDE RECORDS SUMMARY | 2019-08-31 20:17 | XMS REPORT | Continuity of Care Document ---
Author Organization Unknown Address Unknown Phone Unavailable Allergies Active Description Code Type Severity Reaction Onset Reported/Identified Relationship to Patient Clinical Status Yes No Known Drug Allergies [id number] Drug Allergy Unknown N/A 01/15/2019 Medications There is no data. Problems Date Dx Coded Attending Type Code Diagnosis Diagnosed By 01/15/2019 MELISSASTAMBER LUU DO Ot E11.65 TYPE 2 DIABETES MELLITUS WITH HYPERGLYCE 01/15/2019 SILVIAVENSTINE AMBER TIDWELL Ot M79.7 FIBROMYALGIA 01/15/2019 ROVENSTINE AMBER TIDWELL L Ot R53.1 WEAKNESS 01/15/2019 ROVENSTINE AMBER TIDWELL L Ot Z79.84 TICKET DISPATCHER (CURRENT) USE OF ORAL HYPOGLYC 01/15/2019 ROVENSTINE BEBA TIDWELLEN L Ot Z85.038 PERSONAL HISTORY OF MALIGNANT NEOPLASM O 04/27/2019 DERRICK TIDWELL, LISSA B Ot E11. 9 TYPE 2 DIABETES MELLITUS WITHOUT COMPLIC 04/27/2019 DERRICK TIDWELL, LISSA B Ot F17.200 NICOTINE DEPENDENCE, UNSPECIFIED, UNCOMP 04/27/2019 DERRICK TIDWELL, LISSA B Ot R11. 0 NAUSEA 04/27/2019 LISSA MEZA DO B Ot R19. 6 HALITOSIS 04/27/2019 LISSA MEZA DO B Ot R19. 7 DIARRHEA, UNSPECIFIED 04/27/2019 DERRICK TIDWELL LISSA B Ot Z79. 84 FPC (CURRENT) USE OF ORAL HYPOGLYC 04/27/2019 DERRICK TIDWELL, LISSA B Ot Z85.038 PERSONAL HISTORY OF MALIGNANT NEOPLASM O 04/27/2019 JANEY WASHBURN MD Ot E11.9 TYPE 2 DIABETES MELLITUS WITHOUT COMPLIC 04/27/2019 JANEY WASHBURN MD Ot R10.9 UNSPECIFIED ABDOMINAL PAIN 04/27/2019 JANEY WASHBURN MD Ot R11.2 NAUSEA WITH VOMITING, UNSPECIFIED 04/27/2019 JANEY WASHBURN MD Ot R19.7 DIARRHEA, UNSPECIFIED 04/27/2019 JANEY WASHBURN MD Ot Z79.84 TICKET DISPATCHER (CURRENT) USE OF ORAL HYPOGLYC 04/27/2019 JANEY WASHBURN MD Ot Z85.038 PERSONAL HISTORY OF MALIGNANT NEOPLASM [...] 7-25 CREATININE 0.96 mg/dL 0.70-1.33 eGFR NON-AFR. [place] 92 mL/min/1.73m2 > OR = 60 eGFR [...] FOR INFLUENZA A AND B ANTIGENS BY [facility] Complete blood count (CBC) with automate [...] 04/27/19 11:25 PROBNP FS 11.1 pg/mL <75.0 LIPID PANEL - 05/31/19 14:24 CHOLESTEROL, TOTAL 122 mg/dL <200 HDL CHOLESTEROL 45 mg/dL > OR = 40 TRIGLYCERIDES 314 mg/dL <150 LDL-CHOLESTEROL 44 mg/dL (calc) NRG CHOL/HDLC RATIO 2.7 (calc) <5.0 NON HDL CHOLESTEROL 77 mg/dL (calc) <130 CMP - 05/31/19 14:24 GLUCOSE 115 mg/dL 65-99 UREA NITROGEN (BUN) 14 mg/dL 7-25 CREATININE 0.90 mg/dL 0.70-1.33 eGFR NON-AFR. [place] 99 mL/min/1.73m2 > OR = 60 eGFR 114 mL/min/1.73m2 > OR = 60 BUN/CREATININE RATIO NOT APPLICABLE (calc) 6-22 SODIUM 135 mmol/L 135-146 POTASSIUM 4.5 mmol/L 3.5-5.3 CHLORIDE 102 mmol/L 98-110 CARBON DIOXIDE 29 mmol/L 20-32 CALCIUM 9.1 mg/dL 8.6-10.3 PROTEIN, TOTAL 7.1 g/dL 6.1-8.1 ALBUMIN 4.1 g/dL 3.6-5.1 GLOBULIN 3.0 g/dL (calc) 1.9-3.7 ALBUMIN/GLOBULIN RATIO 1.4 (calc) 1.0-2. 5 BILIRUBIN, TOTAL 0.2 mg/dL 0.2-1.2 ALKALINE PHOSPHATASE 110 U/L 35-144 AST 22 U/L 10-35 ALT 28 U/L 9-46 A1C - 05/31/19 14:24 HEMOGLOBIN A1c 6.3 % of total Hgb <5.7 Encounters ACCT No. Visit Date/Time Discharge Status Pt. Type Provider Facility Loc./Unit Complaint [id number] 08/31/2019 15:00:00 [facility] Outpatient SELF, CORTEZ Smith [facility] [id number] 05/31/2019 13:45:00 Document Registration [id number] 01/20/2019 11:15:00 Document Registration [id number] 08/31/2019 15:12:00 15:56:00 DIS Emergency JANEY WASHBURN MD Via [facility] ER FS DIZZY [id number] 04/27/2019 19:46:00 20:44:00 DIS Emergency JANEY WASHBURN MD Via [facility] ER FS CHILLS,VOMITING [id number] 04/27/2019 11:09:00 12:21:00 DIS Emergency LISSA MEZA DO Via [facility] ER FS NAUSEA [id number] 01/15/2019 21:03:00 22:59:00 DIS Emergency SILVIAVENSTAMBER LUU DO Via [facility] ER FS WEAKNESS,DEHYDR ATION SYMPTOMS,DIARRHEA
== END 2019-08-31 15:56 | disposition home or self-care (01) ==
LOC: EDUNIT# 15:10 → ER FS 15:12
DX: R42 Dizziness and giddiness (principal); E11.9 Type 2 diabetes mellitus without complications; Z79.84 Long term (current) use of oral hypoglycemic drugs; Z85.038 Personal history of other malignant neoplasm of large intestine
CPT/HCPCS: 82962; 99283

== ENCOUNTER 2019-09-15 11:30 | Emergency (ER) | payer MEDICARE, MEDICAID ==
[~2019-09-15] VITALS: Ht 170.1 cm; Wt 95.4 kg
[2019-09-15 12:00] VITALS: BP 129/75
[2019-09-15 12:15] VITALS: BP 132/63
--- NOTE | 2019-09-15 12:22 | Diagnostic Imaging Report ---
INDICATION: Fever and cough and chest discomfort. TECHNIQUE: Frontal chest obtained at 12:02 p.m. COMPARISON: There is no previous study for comparison. FINDINGS: Heart and mediastinal silhouette are normal in appearance. The lungs are clear. There is no pneumothorax or pleural fluid. There is a Port-A-Cath over the right chest with tip overlying the SVC. IMPRESSION: No acute process in the chest. Dictated by: Dictated on workstation # [id number]
[2019-09-15] MEDS ORDERED: RT-ALBUINH IH (12:27)
[2019-09-15] MEDS ORDERED: DEXA6TAB6 PO (12:27)
--- NOTE | 2019-09-15 12:27 | ED Cough/URI ---
General Chief Complaint: Respiratory Problems Stated Complaint: COUGH; ACHINESS Nursing Triage Note: Pt presents to ER registration window c/o cough x 2 days and chest discomfort from cough and bodyaches. Unknown hx of fever per pt. Pt states at home as disabled and has fibromyalgia. Denies travel and crowd exposure. Pt smokes 1 1/2 pk/daily. Returned to vehicle and brought directly to ED 5 via Decon Rm. Sepsis Screen: Possible Severe Sepsis Risk Source: patient Exam Limitations: no limitations History of Present Illness Date Seen by Provider: Sep 15, 2019 Time Seen by Provider: 12:00 Initial Comments 49-year-old male presents with cough and chest congestion for the past 2 days. Associated body aches with no known fever. Also no known exposure to COVID-19. Past medical history significant for colon cancer in remission, fibromyalgia. He is a smoker of cigarettes, meth and marijuana. Allergies and Home Medications Allergies Coded Allergies: No Known Drug Allergies (Unverified , 01/15/19) Home Medications Albuterol Sulfate 1 Puff Puff, 2 PUFF IH Q4H 1 PUFF = 90 MCG Prescribed by: AMBER HERNANDEZ on 09/15/19 1227 Patient Home Medication List Home Medication List Reviewed: Yes Review of Systems Review of Systems Constitutional: No dizziness, No fever; malaise; No weakness EENTM: no symptoms reported Respiratory: cough; No short of breath, No stridor, No wheezing Cardiovascular: No chest pain, No edema, No palpitations Gastrointestinal: No abdominal pain, No nausea, No vomiting Musculoskeletal: No back pain, No joint pain Skin: No change in color, No rash Past Xibxtex-Syylks-Znfktw Hx Past Med/Social Hx: Reviewed Nursing Past Med/Soc Hx Patient Social History Drug of Choice: POT, meth Type Used: Cigarettes 2nd Hand Smoke Exposure: No Recent Foreign Travel: No Contact w/Someone Who Travel: No Recent Infectious Disease Expo: No Recent Hopitalizations: No Seasonal Allergies Seasonal Allergies: No Past Medical History Surgeries: Yes Abdominal Respiratory: No Cardiac: No Neurological: No Sexually Transmitted Disease: No HIV/AIDS: No Genitourinary: No Gastrointestinal: No Musculoskeletal: Yes Fibromyalgia Endocrine: Yes Diabetes, Non-Insulin dep HEENT: No Cancer: Yes Colon Did You Recieve Any Treatments: Yes What Type of Treatment Did You: Chemotherapy Psychosocial: No Integumentary: No Blood Disorders: No Physical Exam Vital Signs - First Documented 09/15/19 11:50 Temp 37.4 Pulse 89 Resp 22 B/P (MAP) 139/82 (101) Pulse Ox 97 O2 Delivery Room Air Capillary Refill : Less Than 3 Seconds Height: '" Weight: lbs. oz. kg; 35.00 BMI Method: General Appearance: WD/WN, no apparent distress HEENT: PERRL/EOMI, normal ENT inspection, TMs normal Neck: non-tender, supple, normal inspection Respiratory: chest non-tender, lungs clear, normal breath sounds, no respiratory distress, no accessory muscle use Cardiovascular: regular rate, rhythm, no edema, no gallop, no JVD Gastrointestinal: non tender, soft Extremities: normal range of motion, non-tender, no pedal edema Neurologic/Psychiatric: alert, normal mood/affect, oriented x 3 Progress/Results/Core Measures Suspected Sepsis Recent Fever Within 48 Hours: Yes Infection Criteria Present: Suspected New Infection New/Unexplained Altered Menta: No Sepsis Screen: Possible Severe Sepsis Risk SIRS Temperature: Pulse: 89 Respiratory Rate: 22 Blood Pressure 139 /82 Mean: 101 Results/Orders Lab Results Laboratory Tests Test 09/15/19 12:09 Range/Units My Orders Orders - SILVIAVENSTINEAMBER DO Chest 1 View Ap/Pa Only (09/15/19 11:59) Coronavirus Sars-Cov-2 So 2018 (09/15/19 11:59) Vital Signs/I&O 09/15/19 09/15/19 09/15/19 09/15/19 11:50 12:00 12:15 12:35 Temp 37.4 37.3 Pulse 89 88 82 81 Resp 22 20 20 22 B/P (MAP) 139/82 (101) 129/75 (93) 132/63 (86) 122/67 (101) Pulse Ox 97 95 95 95 O2 Delivery Room Air Room Air Room Air Room Air 09/15/19 12:35 Pulse 81 Resp 22 B/P (MAP) 122/67 (85) Pulse Ox 95 O2 Delivery Room Air Capillary Refill : Less Than 3 Seconds Blood Pressure Mean: 101 Departure Impression Primary Impression: Bronchitis Disposition: 01 HOME, SELF-CARE Condition: Stable Departure-Patient Inst. Decision time for Depature: 12:25 Referrals: SELF,CORTEZ BILL (PCP/Family) Primary Care Physician Patient Instructions: Acute Bronchitis, Adult (DC) Add. Discharge Instructions: He advised to self quarantine until advised otherwise by the local health department. We are waiting on the results of your COVID-19 testing. Usual prescriptions as directed and follow-up to the ER if her symptoms significantly progress or get worse All discharge instructions reviewed with patient and/or family. Voiced understanding. Scripts Albuterol Sulfate (PROAIR HFA) 1 Puff Puff 2 PUFF IH Q4H for Cough, #1 PUFF 1 Refill 1 PUFF = 90 MCG Prov: AMBER HERNANDEZ DO 09/15/19 AMBER HERNANDEZ DO Sep 15, 2019 12:27
[2019-09-15 12:35] VITALS: BP 122/67
--- NOTE | 2019-09-15 12:35 | NUR ---
Patient discharged after review of home instructions verbalized and given the COVID handout literature. Advised patient of need to self quarantine at home awaiting the results of this COVID test to be called to him by outside source. Testing is varied from 2-4 days for results. Pt drove self and verbalizes he understands. Dismissed via Decon room (Reverse Isolation) exit.
[2019-09-15] MEDS ORDERED: ASEN5TAB7 (13:13)
[2019-09-15] MEDS ORDERED: PALI9TAB (13:13)
--- OUTSIDE RECORDS SUMMARY | 2019-09-15 13:21 | XMS REPORT | Continuity of Care Document ---
Author Organization Unknown Address Unknown Phone Unavailable Allergies Active Description Code Type Severity Reaction Onset Reported/Identified Relationship to Patient Clinical Status Yes No Known Drug Allergies [id number] Drug Allergy Unknown N/A 01/15/2019 Medications There is no data. 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 CUBAN 92 mL/min/1.73m2 > OR = 60 eGFR [...] FOR INFLUENZA A AND B ANTIGENS BY [facility] Complete blood count (CBC) with [...] 7-25 CREATININE 0.90 mg/dL 0.70-1.33 eGFR NON-AFR. CUBAN 99 mL/min/1.73m2 > OR = 60 eGFR [...] A1c 6.3 % of total Hgb <5.7 Capillary blood glucose measurement by g lucometer (mass/volume) - 08/31/19 15:48 Capillary blood glucose measurement by glucometer (mas s/volume) 106 mg/dL 70-110 Encounters ACCT No. Visit Date/Time Discharge Status Pt. Type Provider Facility Loc./Unit Complaint [id number] 08/31/2019 15:00:00 08/31/2019 23:59:5 9 CLS Outpatient SELF, CORTEZ Mock [facility] [id number] 05/31/2019 13:45:00 Document Registration [id number] 01/20/2019 11:15:00 Document Registration [id number] 08/31/2019 15:12:00 15:56:00 DIS Outpatient JANEY WASHBURN MD [facility] ER FS DIZZY [id number] 04/27/2019 19:46:00 20:44:00 DIS Emergency JANEY WASHBURN MD [facility] ER FS CHILLS,VOMITING [id number] 04/27/2019 11:09:00 020 12:21:00 DIS Emergency LISSA MEZA DO [facility] ER FS NAUSEA [id number] 01/15/2019 21:03:00 019 22:59:00 DIS Emergency AMBER HERNANDEZ DO [facility] ER FS WEAKNESS,DEHYDR ATION SYMPTOMS,DIARRHEA
== END 2019-09-15 12:35 | disposition home or self-care (01) ==
LOC: EDUNIT# 11:30 → ER FS 11:32
DX: J40 Bronchitis, not specified as acute or chronic (principal); F17.210 Nicotine dependence, cigarettes, uncomplicated; Z20.828 Contact with and (suspected) exposure to other viral communicable diseases; Z85.028 Personal history of other malignant neoplasm of stomach
CPT/HCPCS: 71045; U0002; 87635

== ENCOUNTER 2020-02-10 09:38 | Emergency (ER) | payer MEDICARE, MEDICAID ==
[~2020-02-10] VITALS: Ht 170.1 cm; Wt 100.0 kg
[~2020-02-10 09:38] MED LIST changes: +ASEN5TAB7; +DEXA6TAB6 PO; +PALI9TAB; +RT-ALBUINH IH
--- NOTE | 2020-02-10 09:58 | ED GI ---
General Chief Complaint: Abdominal/GI Problems Stated Complaint: N/V Source of Information: Patient History of Present Illness Date Seen by Provider: Feb 10, 2020 Time Seen by Provider: 09:45 Initial Comments 49-year-old male presents via EMS with complaint of nausea, vomiting and diarrhea since last night. States that he vomited 4 times with some associated stomach cramping, resolved on arrival. Given Zofran en route by EMS. Denies recent illness, fever or chills, suspicion of eating bad food, however he did eat " last night". Past medical history significant for colon cancer. Denies any change to his bowel pattern, habit or evidence of melena or dark stools. Allergies and Home Medications Allergies Coded Allergies: No Known Drug Allergies (Unverified , 01/15/19) Home Medications Albuterol Sulfate 1 Puff Puff, 2 PUFF IH Q4H 1 PUFF = 90 MCG Prescribed by: AMBER HERNANDEZ on 09/15/19 1227 Loperamide HCl 2 Mg Tablet, 2 MG PO BID PRN Prescribed by: AMBER HERNANDEZ on 02/10/20 1015 Ondansetron 4 Mg Tab.rapdis, 4 MG PO TID Prescribed by: AMBER HERNANDEZ on 02/10/20 1015 Patient Home Medication List Home Medication List Reviewed: Yes Review of Systems Review of Systems Constitutional: No fever, No malaise, No weakness Respiratory: Denies Cough, Denies Shortness of Air Cardiovascular: Denies Chest Pain, Denies Edema, Denies Irregular Heart Rate Gastrointestinal: Denies Abdomen Distended, Denies Abdominal Pain; Diarrhea, Nausea, Poor Fluid Intake, Vomiting Musculoskeletal: No back pain, No joint pain Skin: No change in color, No rash Past Gbwxdnp-Ewzudb-Fpywvg Hx Past Med/Social Hx: Reviewed Nursing Past Med/Soc Hx Patient Social History Drug of Choice: Meth, THC Type Used: Cigarettes 2nd Hand Smoke Exposure: No Recent Foreign Travel: No Contact w/Someone Who Travel: No Recent Hopitalizations: No Immunizations Up To Date Date of Influenza Vaccine: Nov 17, 2018 Seasonal Allergies Seasonal Allergies: No Past Medical History Surgeries: Yes Bowel Surgery Respiratory: Yes (Tobaccoism) Cardiac: No Neurological: No Sexually Transmitted Disease: No HIV/AIDS: No Genitourinary: No Gastrointestinal: Yes (hx colon resection) Musculoskeletal: Yes Fibromyalgia Endocrine: Yes (DM II) Diabetes, Non-Insulin dep HEENT: No Cancer: Yes Colon Did You Recieve Any Treatments: Yes What Type of Treatment Did You: Chemotherapy Psychosocial: No (Schizo-affective disorder) Schizophrenia Integumentary: No Blood Disorders: No Physical Exam Vital Signs Vital Signs - First Documented 02/10/20 09:39 Temp 36.2 Pulse 72 Resp 16 B/P (MAP) 119/73 (88) Pulse Ox 96 O2 Delivery Room Air Capillary Refill : Height/Weight/BMI Height: '" Weight: lbs. oz. kg; 32.00 BMI Method: General Appearance: WD/WN, no apparent distress HEENT: PERRL/EOMI, normal ENT inspection Respiratory: lungs clear, normal breath sounds Cardiovascular: regular rate, rhythm, no edema, no gallop Gastrointestinal: non tender, soft, abnormal bowel sounds (hyperactive); No hernia, No mass Back: normal inspection, no CVA tenderness Neurologic/Psychiatric: no motor/sensory deficits, normal mood/affect Skin: normal color, warm/dry Progress/Results/Core Measures Results/Orders Lab Results Laboratory Tests Test 02/10/20 09:45 Range/Units White Blood Count 10.4 4.3-11.0 10^3/uL Red Blood Count 5.19 4.35-5.85 10^6/uL Hemoglobin 16.2 13.3-17.7 G/DL Hematocrit 48 40-54 % Mean Corpuscular Volume 93 80-99 FL Mean Corpuscular Hemoglobin 31 25-34 PG Mean Corpuscular Hemoglobin Concent 34 32-36 G/DL Red Cell Distribution Width 13.4 10.0-14.5 % Platelet Count 239 130-400 10^3/uL Mean Platelet Volume 9.2 7.4-10.4 FL Immature Granulocyte % (Auto) 0 % Neutrophils (%) (Auto) 74 42-75 % Lymphocytes (%) (Auto) 18 12-44 % Monocytes (%) (Auto) 5 0-12 % Eosinophils (%) (Auto) 2 0-10 % Basophils (%) (Auto) 0 0-10 % Neutrophils # (Auto) 7.7 1.8-7.8 X 10^3 Lymphocytes # (Auto) 1.9 1.0-4.0 X 10^3 Monocytes # (Auto) 0.5 0.0-1.0 X 10^3 Eosinophils # (Auto) 0.2 0.0-0.3 10^3/uL Basophils # (Auto) 0.0 0.0-0.1 10^3/uL Immature Granulocyte # (Auto) 0.0 0.0-0.1 10^3/uL Sodium Level 141 135-145 MMOL/L Potassium Level 4.2 3.6-5.0 MMOL/L Chloride Level 104 98-107 MMOL/L Carbon Dioxide Level 26 21-32 MMOL/L Anion Gap 11 5-14 MMOL/L Blood Urea Nitrogen 20 H 7-18 MG/DL Creatinine 0.94 0.60-1.30 MG/DL Estimat Glomerular Filtration Rate > 60 BUN/Creatinine Ratio 21 Glucose Level 135 H 70-105 MG/DL Calcium Level 9.2 8.5-10.1 MG/DL Corrected Calcium 9.1 8.5-10.1 MG/DL Total Bilirubin 0.2 0.1-1.0 MG/DL Aspartate Amino Transf (AST/SGOT) 16 5-34 U/L Alanine Aminotransferase (ALT/SGPT) 20 0-55 U/L Alkaline Phosphatase 127 40-136 U/L Total Protein 7.4 6.4-8.2 GM/DL Albumin 4.1 3.2-4.5 GM/DL My Orders Orders - AMBER HERNANDEZ DO Comprehensive Metabolic Panel (02/10/20 09:52) Cbc With Automated Diff (02/10/20 09:52) Ns Iv 1000 Ml (Sodium Chloride 0.9%) (02/10/20 10:00) Ondansetron Injection (Zofran Injectio (02/10/20 10:15) Vital Signs/I&O 02/10/20 09:39 Temp 36.2 Pulse 72 Resp 16 B/P (MAP) 119/73 (88) Pulse Ox 96 O2 Delivery Room Air Departure Impression Primary Impression: Gastroenteritis Disposition: 01 HOME, SELF-CARE Condition: Improved Departure-Patient Inst. Decision time for Depature: 10:31 Referrals: SELFCORTEZ MD (PCP/Family) Primary Care Physician Patient Instructions: Viral Gastroenteritis, Adult (DC) Add. Discharge Instructions: see your doctor next week if you are not feeling, better. Return to the nearest ER sooner if worse. All discharge instructions reviewed with patient and/or family. Voiced understanding. Scripts Loperamide HCl (Imodium A-D) 2 Mg Tablet 2 MG PO BID PRN for Diarrhea, #10 TAB Prov: AMBER HERNANDEZ DO 02/10/20 Ondansetron (Ondansetron Odt) 4 Mg Tab.rapdis 4 MG PO TID for Nausea, #10 TAB Prov: AMBER HERNANDEZ DO 02/10/20 AMBER HERNANDEZ DO Feb 10, 2020 09:58
[2020-02-10 09:59] LABS: EOSINOPHILS % (AUTO) 2 % (0-10); HEMATOCRIT 48 % (40-54); HEMOGLOBIN 16.2 G/DL (13.3-17.7); LYMPHOCYTES % (AUTO) 18 % (12-44); MEAN CORPUSCULAR HEMOGLOBIN 31 PG (25-34); MEAN CORPUSCULAR HGB CONC 34 G/DL (32-36); MEAN CORPUSCULAR VOLUME 93 FL (80-99); MEAN PLATELET VOLUME 9.2 FL (7.4-10.4); MONOCYTES % (AUTO) 5 % (0-12); NEUTROPHILS % (AUTO) 74 % (42-75); PLATELET COUNT 239 10^3/uL (130-400); WHITE BLOOD COUNT 10.4 10^3/uL (4.3-11.0)
[2020-02-10 10:00] LABS: BASOPHILS % (AUTO) 0 % (0-10); EOSINOPHILS # (AUTO) 0.2 10^3/uL (0.0-0.3); LYMPHOCYTES # (AUTO) 1.9 X 10^3 (1.0-4.0); MONOCYTES # (AUTO) 0.5 X 10^3 (0.0-1.0); NEUTROPHILS # (AUTO) 7.7 X 10^3 (1.8-7.8)
[2020-02-10] MEDS ORDERED: NS IV 1000 ML 1,000 ML IV SCH (10:00)
[2020-02-10] MEDS ORDERED: ONDA4TAB11 PO (10:15)
[2020-02-10] MEDS ORDERED: LOPE-134 PO (10:15)
[2020-02-10] MEDS ORDERED: ONDANSETRON 4 MG/2 ML (SDV) Z0FRAN IVP ONE (10:15)
[2020-02-10 10:26] LABS: ALKALINE PHOSPHATASE 127 U/L (40-136); BILIRUBIN,TOTAL 0.2 MG/DL (0.1-1.0); BUN/CREATININE RATIO 21; CALCIUM 9.2 MG/DL (8.5-10.1); CARBON DIOXIDE 26 MMOL/L (21-32); CHLORIDE 104 MMOL/L (98-107); CREATININE SERUM 0.94 MG/DL (0.60-1.30); GFR ESTIMATED > 60; GLUCOSE 135 MG/DL (70-105); POTASSIUM 4.2 MMOL/L (3.6-5.0); SODIUM 141 MMOL/L (135-145)
[2020-02-10 10:27] LABS: ALANINE AMINOTRANSFERASE 20 U/L (0-55); ALBUMIN 4.1 GM/DL (3.2-4.5); TOTAL PROTEIN 7.4 GM/DL (6.4-8.2)
[2020-02-10 10:38] VITALS: BP 119/73
== END 2020-02-10 10:38 | disposition home or self-care (01) ==
LOC: EDUNIT# 09:38 → ER FS 09:42
DX: K52.9 Noninfective gastroenteritis and colitis, unspecified (principal); Z85.038 Personal history of other malignant neoplasm of large intestine
CPT/HCPCS: 36415; 80053; 85025

== ENCOUNTER 2020-03-16 13:03 | Emergency (ER) | payer MEDICARE, MEDICAID ==
[~2020-03-16 13:03] MED LIST changes: +LOPE-134 PO
[2020-03-16] MEDS ORDERED: LACTATED RINGERS 1,000 ML IV STA ×2 (13:06→14:58)
[2020-03-16] MEDS ORDERED: FAMOTIDINE 20MG/2ML IV (PEPCID) IV STA (13:06)
--- NOTE | 2020-03-16 13:06 | ED GI ---
General Stated Complaint: ABD PAIN History of Present Illness Date Seen by Provider: Mar 16, 2020 Time Seen by Provider: 13:04 Initial Comments 49-year-old male brought in by EMS. Patient presents with upper abdomen/epigastric pain that started this morning with multiple episodes of emesis and diarrhea. Patient has some chills. He denies cough. Patient somewhat uncooperative and only mumbles his answers. Patient has history of colon cancer with surgery. Patient has a large midline scar and reports the pain is at the upper aspect of this midline scar. Allergies and Home Medications Allergies Coded Allergies: No Known Drug Allergies (Unverified , 01/15/19) Home Medications Albuterol Sulfate 1 Puff Puff, 2 PUFF IH Q4H 1 PUFF = 90 MCG Prescribed by: AMBER HERNANDEZ on 09/15/19 1227 Ciprofloxacin HCl 500 Mg Tablet, 500 MG PO BID Prescribed by: IBRAHIMA RACHEL on 03/16/20 1503 Loperamide HCl 2 Mg Tablet, 2 MG PO BID PRN Prescribed by: AMBER HERNANDEZ on 02/10/20 1015 Loperamide HCl 2 Mg Capsule, 2 MG PO QID Prescribed by: IBRAHIMA RACHEL on 03/16/20 1503 Metronidazole 500 Mg Tablet, 500 MG PO BID Prescribed by: IBRAHIMA RACHEL on 03/16/20 1503 Ondansetron 4 Mg Tab.rapdis, 4 MG PO TID Prescribed by: AMBER HERNANDEZ on 02/10/20 1015 Ondansetron 4 Mg Tab.rapdis, 4 MG PO Q6H PRN for NAUSEA/VOMITING Prescribed by: IBRAHIMA RACHEL on 03/16/20 1503 Patient Home Medication List Home Medication List Reviewed: Yes Review of Systems Review of Systems Constitutional: chills, malaise Respiratory: Denies Cough, Denies Shortness of Air Cardiovascular: Denies Chest Pain, Denies Lightheadedness Gastrointestinal: Abdominal Pain, Diarrhea, Nausea, Vomiting Musculoskeletal: no symptoms reported Skin: no symptoms reported Psychiatric/Neurological: No Symptoms Reported Endocrine: No Symptoms Reported Hematologic/Lymphatic: No Symptoms Reported Past Gvdebxw-Jbiqdt-Aiqfzm Hx Past Med/Social Hx: Reviewed Nursing Past Med/Soc Hx Physical Exam Vital Signs Vital Signs - First Documented 03/16/20 13:13 Temp 35.7 Pulse 73 Resp 18 B/P (MAP) 108/72 (84) Pulse Ox 96 O2 Delivery Room Air Capillary Refill : Height/Weight/BMI Height: '" Weight: lbs. oz. kg; BMI Method: General Appearance: mild distress HEENT: PERRL/EOMI Neck: full range of motion, supple Respiratory: lungs clear, normal breath sounds Cardiovascular: regular rate, rhythm Gastrointestinal: soft, tenderness (Upper abdomen) Extremities: normal range of motion Neurologic/Psychiatric: no motor/sensory deficits, alert Skin: normal color, warm/dry Focused Exam Lactate Level 03/16/20 13:23: Lactic Acid Level 2.20*H Lactic Acid Level Laboratory Tests Test 03/16/20 13:23 Lactic Acid Level 2.20 MMOL/L (0.50-2.00) *H Progress/Results/Core Measures Results/Orders Lab Results Laboratory Tests Test 03/16/20 13:10 03/16/20 13:23 Range/Units White Blood Count 16.0 H 4.3-11.0 10^3/uL Red Blood Count 5.50 4.35-5.85 10^6/uL Hemoglobin 17.0 13.3-17.7 G/DL Hematocrit 51 40-54 % Mean Corpuscular Volume 93 80-99 FL Mean Corpuscular Hemoglobin 31 25-34 PG Mean Corpuscular Hemoglobin Concent 33 32-36 G/DL Red Cell Distribution Width 13.3 10.0-14.5 % Platelet Count 278 130-400 10^3/uL Mean Platelet Volume 9.1 7.4-10.4 FL Immature Granulocyte % (Auto) 0 % Neutrophils (%) (Auto) 82 H 42-75 % Lymphocytes (%) (Auto) 12 12-44 % Monocytes (%) (Auto) 5 0-12 % Eosinophils (%) (Auto) 1 0-10 % Basophils (%) (Auto) 0 0-10 % Neutrophils # (Auto) 13.1 H 1.8-7.8 X 10^3 Lymphocytes # (Auto) 1.9 1.0-4.0 X 10^3 Monocytes # (Auto) 0.8 0.0-1.0 X 10^3 Eosinophils # (Auto) 0.2 0.0-0.3 10^3/uL Basophils # (Auto) 0.0 0.0-0.1 10^3/uL Immature Granulocyte # (Auto) 0.1 0.0-0.1 10^3/uL Neutrophils % (Manual) 69 % Lymphocytes % (Manual) 9 % Monocytes % (Manual) 3 % Eosinophils % (Manual) 2 % Basophils % (Manual) 0 % Band Neutrophils 15 % Atypical Lymphocytes 2 % Blood Morphology Comment NORMAL Sodium Level 139 135-145 MMOL/L Potassium Level 4.2 3.6-5.0 MMOL/L Chloride Level 105 98-107 MMOL/L Carbon Dioxide Level 23 21-32 MMOL/L Anion Gap 11 5-14 MMOL/L Blood Urea Nitrogen 16 7-18 MG/DL Creatinine 0.81 0.60-1.30 MG/DL Estimat Glomerular Filtration Rate > 60 BUN/Creatinine Ratio 20 Glucose Level 160 H 70-105 MG/DL Calcium Level 9.5 8.5-10.1 MG/DL Corrected Calcium 8.5-10.1 MG/DL Total Bilirubin 0.2 0.1-1.0 MG/DL Aspartate Amino Transf (AST/SGOT) 22 5-34 U/L Alanine Aminotransferase (ALT/SGPT) 28 0-55 U/L Alkaline Phosphatase 138 H 40-136 U/L C-Reactive Protein 1.54 H <0.50 MG/DL Total Protein 8.2 6.4-8.2 GM/DL Albumin 4.6 H 3.2-4.5 GM/DL Lipase 13 8-78 U/L Lactic Acid Level 2.20 *H 0.50-2.00 MMOL/L Micro Results Microbiology 03/16/20 Influenza Types A,B Antigen (JENNIFER) - Final, Complete My Orders Orders - IBRAHIMA RACHEL DO Comprehensive Metabolic Panel (03/16/20 13:06) Lipase (03/16/20 13:06) Ua Culture If Indicated (03/16/20 13:06) Acute Abd Series (03/16/20 13:06) Cbc With Automated Diff (03/16/20 13:06) Ct Abdomen/Pelvis W (03/16/20 13:06) Lactic Acid Analyzer (03/16/20 13:06) Influenza A And B Antigens (03/16/20 13:06) Crp Fs (03/16/20 13:06) Lactated Ringers (Lr 1000 Ml Iv Solution (03/16/20 13:06) Famotidine Injection (Pepcid Injection) (03/16/20 13:06) Manual Differential (03/16/20 13:10) Iohexol Injection (Omnipaque 350 Mg/Ml 1 (03/16/20 14:15) Received Contrast (Hold Metformin- Contr (03/16/20 14:15) Sodium Chloride Flush (Catheter Flush Sy (03/16/20 14:15) Ns (Ivpb) (Sodium Chloride 0.9% Ivpb Bag (03/16/20 14:15) Lactated Ringers (Lr 1000 Ml Iv Solution (03/16/20 14:58) Medications Given in ED Current Medications Medications Dose Ordered Sig/Grace Route Start Time Stop Time Status Last Admin Dose Admin Iohexol 100 ml ONCE ONCE IV 03/16/20 14:15 03/16/20 14:16 DC 03/16/20 14:26 100 ML Sodium Chloride 10 ml NEEDED PRN IV 03/16/20 14:15 03/16/20 14:26 10 ML Sodium Chloride 100 ml ONCE ONCE IV 03/16/20 14:15 03/16/20 14:16 DC 03/16/20 14:26 100 ML Vital Signs/I&O 03/16/20 13:13 Temp 35.7 Pulse 73 Resp 18 B/P (MAP) 108/72 (84) Pulse Ox 96 O2 Delivery Room Air Progress Progress Note : Time: 14:59 Progress Note Patient work-up consistent with a gastroenteritis/colitis diarrheal illness. Patient will be treated with Cipro, Flagyl antidiarrheal and nausea medication. Patient stable. He will be discharged home and should follow-up with his primary care provider next week. Departure Impression Primary Impression: Enteritis Disposition: 01 HOME, SELF-CARE Condition: Stable Departure-Patient Inst. Patient Instructions: Diarrhea, Adult ED Add. Discharge Instructions: Drink plenty of fluids Follow-up with your primary care provider next week Scripts Loperamide HCl (Loperamide) 2 Mg Capsule 2 MG PO QID, #20 CAP Prov: IBRAHIMA RACHEL DO 03/16/20 Ondansetron (Ondansetron Odt) 4 Mg Tab.rapdis 4 MG PO Q6H PRN for NAUSEA/VOMITING, #20 TAB 0 Refills Prov: IBRAHIMA RACHEL DO 03/16/20 Metronidazole (Metronidazole) 500 Mg Tablet 500 MG PO BID, #14 TAB 0 Refills Prov: IBRAHIMA RACHEL DO 03/16/20 Ciprofloxacin HCl (Ciprofloxacin HCl) 500 Mg Tablet 500 MG PO BID, #14 TAB Prov: IBRAHIMA RACHEL DO 03/16/20 Work/School Note: Work Release Form Date Seen in the Emergency Department: Mar 16, 2020 Return to Work: Mar 19, 2020 Restrictions: No Restrictions IBRAHIMA RACHEL DO Mar 16, 2020 13:06
[2020-03-16 13:20] LABS: BASOPHILS % (AUTO) 0 % (0-10); EOSINOPHILS # (AUTO) 0.2 10^3/uL (0.0-0.3); EOSINOPHILS % (AUTO) 1 % (0-10); HEMATOCRIT 51 % (40-54); LYMPHOCYTES # (AUTO) 1.9 X 10^3 (1.0-4.0); LYMPHOCYTES % (AUTO) 12 % (12-44); MEAN CORPUSCULAR HEMOGLOBIN 31 PG (25-34); MEAN CORPUSCULAR HGB CONC 33 G/DL (32-36); MEAN CORPUSCULAR VOLUME 93 FL (80-99); MEAN PLATELET VOLUME 9.1 FL (7.4-10.4); MONOCYTES # (AUTO) 0.8 X 10^3 (0.0-1.0); MONOCYTES % (AUTO) 5 % (0-12); NEUTROPHILS # (AUTO) 13.1 X 10^3 (1.8-7.8); NEUTROPHILS % (AUTO) 82 % (42-75); PLATELET COUNT 278 10^3/uL (130-400)
[2020-03-16 13:47] LABS: NEUTROPHILS % (MANUAL) 69 %
[2020-03-16 13:48] LABS: ATYPICAL LYMPHOCYTES 2 %; BAND NEUTROPHILS 15 %; BASOPHILS % (MANUAL) 0 %; EOSINOPHILS % (MANUAL) 2 %; LYMPHOCYTES % (MANUAL) 9 %; MONOCYTES % (MANUAL) 3 %; RBC MORPH NORMAL
--- NOTE | 2020-03-16 13:56 | Diagnostic Imaging Report ---
INDICATION: Diffuse abdominal pain. Time of exam 1:28 p.m. FINDINGS: Right chest wall port has tip overlying the SVC right atrial junction. Heart size is normal. The lungs are clear. Images of the abdomen demonstrate no evidence of free air. There is a paucity of abdominal bowel gas. This can be seen with fluid-filled bowel loops. No pathologic calcifications are identified. There appear to be postop changes in the right abdomen. Bony structures are unremarkable. IMPRESSION: Overall paucity of bowel gas. This can be seen with fluid-filled bowel and CT of the abdomen and pelvis may be useful for further evaluation. Dictated by: Dictated on workstation # [id number]
[2020-03-16 13:59] LABS: SODIUM 139 MMOL/L (135-145)
[2020-03-16 14:00] LABS: ALANINE AMINOTRANSFERASE 28 U/L (0-55); ALBUMIN 4.6 GM/DL (3.2-4.5); ALKALINE PHOSPHATASE 138 U/L (40-136); BILIRUBIN,TOTAL 0.2 MG/DL (0.1-1.0); BUN/CREATININE RATIO 20; CALCIUM 9.5 MG/DL (8.5-10.1); CARBON DIOXIDE 23 MMOL/L (21-32); CHLORIDE 105 MMOL/L (98-107); CREATININE SERUM 0.81 MG/DL (0.60-1.30); GFR ESTIMATED > 60; GLUCOSE 160 MG/DL (70-105); POTASSIUM 4.2 MMOL/L (3.6-5.0); TOTAL PROTEIN 8.2 GM/DL (6.4-8.2)
[2020-03-16 14:05] LABS: LIPASE 13 U/L (8-78)
[2020-03-16] MEDS ORDERED: CATHETER FLUSH 10 ML SYR IV PRN (14:15)
[2020-03-16] MEDS ORDERED: HOLD METFORMIN - RECEIVED CONTRAST 20 ML VIAL IV SCH (14:15)
[2020-03-16] MEDS ORDERED: NS 100 ML (IVPB) BAG IV ONE (14:15)
[2020-03-16] MEDS ORDERED: IOHEXOL 350 MG/ML 100 ML (OMNIPAQUE 350) VIAL IV ONE (14:15)
--- NOTE | 2020-03-16 14:47 | Diagnostic Imaging Report ---
PROCEDURE: CT abdomen and pelvis with contrast. TECHNIQUE: Multiple contiguous axial images were obtained through the abdomen and pelvis after administration of intravenous contrast. Auto Exposure Controls were utilized during the CT exam to meet ALARA standards for radiation dose reduction. All CT scans use one or more of the following dose optimizing techniques: automated exposure control, MA and/or KvP adjustment based on patient size and exam type or iterative reconstruction. INDICATION: Diffuse abdominal pain with nausea and vomiting. Patient has history of colon carcinoma with colon resection. COMPARISON: No prior CT studies are available for comparison. FINDINGS: The lung bases are clear. Liver demonstrates generalized low density, consistent with hepatic steatosis. No discrete liver mass is identified. Gallbladder is unremarkable. There is no biliary ductal dilatation. Pancreas and spleen are unremarkable. No adrenal mass is identified. Kidneys are unremarkable. Aorta is nonaneurysmal. No central retroperitoneal or mesenteric lymphadenopathy is seen. There appear to be postop changes of hemicolectomy. Entire colon is fluid filled. There are also postop changes involving small bowel loops in the anterior central abdomen. Small bowel does not appear to be appreciably dilated. There is no free fluid or fluid collection. No definite abdominal or pelvic lymphadenopathy is seen. Bladder and prostate are unremarkable. Bony structures are nonacute. IMPRESSION: 1. Hepatic steatosis. 2. Postop changes of right hemicolectomy. The colon is fluid filled, consistent with diarrhea state. No other significant abnormality is detected. Dictated by: Dictated on workstation # [id number]
[2020-03-16] MEDS ORDERED: METR-145 PO (15:03)
[2020-03-16] MEDS ORDERED: CIPR500T4 PO (15:03)
[2020-03-16] MEDS ORDERED: ONDA4TAB11 PO (15:03)
[2020-03-16] MEDS ORDERED: LOPE2CAP PO (15:03)
[2020-03-16 15:44] VITALS: BP 106/72
== END 2020-03-16 15:25 | disposition home or self-care (01) ==
LOC: EDUNIT# 13:03 → ER FS 13:04
DX: K52.9 Noninfective gastroenteritis and colitis, unspecified (principal)
CPT/HCPCS: 36415; 74022; 74177; 80053; 83605; 83690; 85007; 86141; 87804

== ENCOUNTER 2020-06-22 18:54 | Emergency (ER) | payer MEDICARE, MEDICAID ==
[~2020-06-22 18:54] MED LIST changes: +CIPR500T5 PO; +LOPE2CAP PO; +METR-145 PO
--- NOTE | 2020-06-22 19:33 | Diagnostic Imaging Report ---
INDICATION: Injury to head. TECHNIQUE: Multiple contiguous axial images were obtained through the brain without the use of intravenous contrast. Auto Exposure Controls were utilized during the CT exam to meet ALARA standards for radiation dose reduction. There is no prior head CT for comparison. There were no extra-axial fluid collections. No intracranial hemorrhage. No intracranial mass or mass effect. No midline shift. The ventricles are normal in size and position. There were no focal parenchymal abnormalities in the brain. There is no calvarial fracture. For findings in the left orbit, see separate dictation. IMPRESSION: Negative CT head, see separate dictation for findings in the left orbit. Dictated by: Dictated on workstation # [id number]
--- NOTE | 2020-06-22 19:36 | Diagnostic Imaging Report ---
PROCEDURE: CT orbit without contrast. TECHNIQUE: Multiple contiguous axial images were obtained through the facial bones without the use of intravenous contrast. Auto Exposure Controls were utilized during the CT exam to meet ALARA standards for radiation dose reduction. INDICATION: Facial trauma There appears to be a blowout fracture of the medial wall of the left orbit with gas escaping into the intra and extraconal spaces of the left orbit. The left orbital floor appears to be grossly intact. There is no evidence of ocular muscle entrapment. Zygomatic arches are intact. Orbital rims appear to be intact. Paranasal sinuses are clear. Nasal bones appear to be grossly intact. IMPRESSION: Blowout fracture medial wall of the left orbit with escape of gas into the intra and extraconal spaces of the left orbit. Dictated by: Dictated on workstation # [id number]
--- NOTE | 2020-06-22 19:49 | ED EENT ---
History of Present Illness General Chief Complaint: Eye Problems Stated Complaint: LT EYE PAIN Nursing Triage Note: Pt states he was working on his clothes dryer last night and it fell and hit him in the face. Pt presents with left eye pain, swelling and bruising present Source: patient Exam Limitations: no limitations History of Present Illness Date Seen by Provider: June 22, 2020 Time Seen by Provider: 18:45 Initial Comments Patient is a 50-year-old male who presents with left orbit injury. Patient states he was doing methamphetamines and marijuana yesterday and trying to lift a dryer which fell back and hit him in the face. Patient denies loss of consciousness change of vision or eye pain. Patient is a orbital contusion with swelling of the upper eyelid. Visual acuity is intact. He denies headache nausea vomiting, dizziness or neck pain. No other symptoms or complaints at this time. Timing/Duration: abrupt Location: eye (L) Modifying Factors: Improves With Other Associated Symptoms: other Allergies and Home Medications Allergies Coded Allergies: No Known Drug Allergies (Unverified , 01/15/19) Home Medications Albuterol Sulfate 1 Puff Puff, 2 PUFF IH Q4H 1 PUFF = 90 MCG Prescribed by: AMBER HERNANDEZ on 09/15/19 1227 Ciprofloxacin HCl 500 Mg Tablet, 500 MG PO BID Prescribed by: IBRAHIMA RACHEL on 03/16/20 1503 Loperamide HCl 2 Mg Tablet, 2 MG PO BID PRN Prescribed by: AMBER HERNANDEZ on 02/10/20 1015 Loperamide HCl 2 Mg Capsule, 2 MG PO QID Prescribed by: IBRAHIMA RACHEL on 03/16/20 1503 Metronidazole 500 Mg Tablet, 500 MG PO BID Prescribed by: IBRAHIMA RACHEL on 03/16/20 1503 Ondansetron 4 Mg Tab.rapdis, 4 MG PO TID Prescribed by: AMBER HERNANDEZ on 02/10/20 1015 Ondansetron 4 Mg Tab.rapdis, 4 MG PO Q6H PRN for NAUSEA/VOMITING Prescribed by: IBRAHIMA RACHEL on 03/16/20 1503 Patient Home Medication List Home Medication List Reviewed: Yes Review of Systems Review of Systems Constitutional: see HPI Eyes: See HPI Ears: See HPI Nose: see HPI Mouth: see HPI Throat: see HPI Respiratory: see HPI Cardiovascular: see HPI Gastrointestinal: see HPI Musculoskeletal: see HPI Skin: see HPI Neurological: See HPI Immunological/Allergic: see HPI All Other Systems Reviewed Negative Unless Noted: Yes Past Cvrdxrq-Lpthjh-Rtufzy Hx Past Med/Social Hx: Reviewed Nursing Past Med/Soc Hx Patient Social History Alcohol Use: Denies Use Drug of Choice: Meth, THC Smoking Status: Current Everyday Smoker Type Used: Cigarettes 2nd Hand Smoke Exposure: No Recent Infectious Disease Expo: No Recent Hopitalizations: No Immunizations Up To Date Date of Influenza Vaccine: Nov 17, 2018 Seasonal Allergies Seasonal Allergies: No Past Medical History Surgeries: Yes Abdominal, Bowel Surgery Respiratory: Yes (Tobaccoism) Cardiac: No Neurological: No Sexually Transmitted Disease: No HIV/AIDS: No Genitourinary: No Gastrointestinal: Yes (hx colon resection) Musculoskeletal: Yes Fibromyalgia Endocrine: Yes (DM II) Diabetes, Non-Insulin dep HEENT: No Cancer: Yes Colon Did You Recieve Any Treatments: Yes What Type of Treatment Did You: Chemotherapy, Surgical Intervention Psychosocial: No (Schizo-affective disorder) Schizophrenia Integumentary: No Blood Disorders: No Physical Exam Vital Signs Vital Signs - First Documented 06/22/20 18:55 Temp 36.6 Pulse 67 Resp 18 B/P (MAP) 150/70 (96) Pulse Ox 98 O2 Delivery Room Air Height, Weight, BMI Height: '" Weight: lbs. oz. kg; 34.00 BMI Method: General Appearance: no apparent distress Eyes: right eye normal inspection; left eye conjunctival hemorrhage, left eye other (Left orbital contusion with swelling of upper eyelid, no lacerations or deformities. No hyphema, abnormal shaped pupil, visual acuity intact.); bilateral eye PERRL Ears: bilateral ear auricle normal, bilateral ear canal normal, bilateral ear TM normal Nose: normal inspection, discharge Neck: non-tender, supple Progress/Results/Core Measures Results/Orders My Orders Orders - JONATAN SUN DO Ct Orbit/Sella/Iac Wo (06/22/20 19:05) Ct Head Wo (06/22/20 19:09) Vital Signs/I&O 06/22/20 18:55 Temp 36.6 Pulse 67 Resp 18 B/P (MAP) 150/70 (96) Pulse Ox 98 O2 Delivery Room Air Blood Pressure Mean: 96 Departure Communication (Admissions) CT head: No acute disease per radiology report. CT orbits: Blowout fracture involving the left medial wall. Vision intact. No extra ocular muscle entrapment. Dr. Boss [employer] for oral maxillofacial. Will have follow-up in the office. Impression Primary Impression: Closed blow-out fracture of left orbit Disposition: HOME, SELF-CARE Condition: Stable Departure-Patient Inst. Decision time for Depature: 19:54 Referrals: DANIELLE BOSS DDS, MAXWELL MD (PCP/Family) Primary Care Physician Patient Instructions: Facial Fracture (DC) Add. Discharge Instructions: Please follow-up with your PCP and contact Dr. Boss's office and schedule follow-up appointment in 3 to 5 days. All discharge instructions reviewed with patient and/or family. Voiced understanding. JONATAN SUN DO June 22, 2020 19:49
[2020-06-22 19:58] VITALS: BP 150/70
== END 2020-06-22 20:00 | disposition home or self-care (01) ==
LOC: EDUNIT# 18:54 → ER FS 18:55
DX: S02.32XA Fracture of orbital floor, left side, initial encounter for closed fracture (principal); E11.9 Type 2 diabetes mellitus without complications; F17.210 Nicotine dependence, cigarettes, uncomplicated; W22.8XXA Striking against or struck by other objects, initial encounter
CPT/HCPCS: 70450; 70480

== ENCOUNTER 2020-06-27 15:33 | Emergency (ER) | payer MEDICARE, MEDICAID ==
[~2020-06-27] VITALS: Ht 170.2 cm; Wt 99.8 kg
--- NOTE | 2020-06-27 15:41 | ED General ---
General Chief Complaint: Altered Mental Status Stated Complaint: AMS History of Present Illness Date Seen by Provider: June 27, 2020 Time Seen by Provider: 15:37 Initial Comments 50-year-old male presents because he states "when he takes his medication" he feels funny. Patient wants his medications tested to be sure they are what they stated on the bottle. Patient has a blister pack of Metformin and wants to make sure that that is what medication is. Patient denies any illicit drug use or alcohol use. Patient has no acute complaints. Allergies and Home Medications Allergies Coded Allergies: No Known Drug Allergies (Unverified , 01/15/19) Home Medications Albuterol Sulfate 1 Puff Puff, 2 PUFF IH Q4H 1 PUFF = 90 MCG Prescribed by: AMBER HERNANDEZ on 09/15/19 1227 Ciprofloxacin HCl 500 Mg Tablet, 500 MG PO BID Prescribed by: IBRAHIMA RACHEL on 03/16/20 1503 Loperamide HCl 2 Mg Tablet, 2 MG PO BID PRN Prescribed by: AMBER HERNANDEZ on 02/10/20 1015 Loperamide HCl 2 Mg Capsule, 2 MG PO QID Prescribed by: IBRAHIMA RACHEL on 03/16/20 1503 Metronidazole 500 Mg Tablet, 500 MG PO BID Prescribed by: IBRAHIMA RACHEL on 03/16/20 1503 Ondansetron 4 Mg Tab.rapdis, 4 MG PO TID Prescribed by: AMBER HERNANDEZ on 02/10/20 1015 Ondansetron 4 Mg Tab.rapdis, 4 MG PO Q6H PRN for NAUSEA/VOMITING Prescribed by: IBRAHIMA RACHEL on 03/16/20 1503 Patient Home Medication List Home Medication List Reviewed: Yes Review of Systems Review of Systems Constitutional: no symptoms reported EENTM: see HPI Respiratory: no symptoms reported Cardiovascular: no symptoms reported Gastrointestinal: no symptoms reported Genitourinary: no symptoms reported Musculoskeletal: no symptoms reported Psychiatric/Neurological: See HPI Past Ijmosuo-Qyskzf-Ggafjx Hx Past Med/Social Hx: Reviewed Nursing Past Med/Soc Hx Patient Social History Drug of Choice: Meth, THC Type Used: Cigarettes 2nd Hand Smoke Exposure: No Recent Hopitalizations: No Immunizations Up To Date Date of Influenza Vaccine: Nov 17, 2018 Seasonal Allergies Seasonal Allergies: No Past Medical History Surgeries: Yes Abdominal, Bowel Surgery Respiratory: Yes (Tobaccoism) Cardiac: No Neurological: No Sexually Transmitted Disease: No HIV/AIDS: No Genitourinary: No Gastrointestinal: Yes (hx colon resection) Musculoskeletal: Yes Fibromyalgia Endocrine: Yes (DM II) Diabetes, Non-Insulin dep HEENT: No Cancer: Yes Colon Did You Recieve Any Treatments: Yes What Type of Treatment Did You: Chemotherapy, Surgical Intervention Psychosocial: No (Schizo-affective disorder) Schizophrenia Integumentary: No Blood Disorders: No Physical Exam Vital Signs Capillary Refill : Height, Weight, BMI Height: '" Weight: lbs. oz. kg; 34.00 BMI Method: General Appearance: Anxious Eyes: Bilateral Eye Normal Inspection Respiratory: Lungs Clear, Normal Breath Sounds Cardiovascular: Regular Rate, Rhythm Gastrointestinal: Non Tender, Soft Progress/Results/Core Measures Suspected Sepsis SIRS Temperature: Pulse: Respiratory Rate: Blood Pressure / Mean: Results/Orders My Orders Orders - IBRAHIMA RACHEL DO Alcohol (06/27/20 15:41) Drug Screen Stat (Urine) (06/27/20 15:41) Basic Metabolic Panel (06/27/20 15:42) Cbc With Automated Diff (06/27/20 15:42) Vital Signs/I&O Capillary Refill : Progress Note : Progress Note I explained to the patient that we cannot test his medication to ensure they are what they are. I did offer him a general medical exam and a urine is drug scre en and alcohol screen. Patient initially agreed to this. Patient then told the nurse that he wanted to specific medications tested. The nurse once again reiterated that we cannot test for those medications were test the medications himself. Patient then became angry and left AMA. Departure Impression Primary Impression: Examination, medical, general Disposition: 07 AGAINST MEDICAL ADVICE Condition: Stable Departure-Patient Inst. Referrals: SELF,CORTEZ BILL (PCP/Family) Primary Care Physician Add. Discharge Instructions: Follow-up with primary care provider to review your medications All discharge instructions reviewed with patient and/or family. Voiced understanding. IBRAHIMA RACHEL DO June 27, 2020 15:41
[2020-06-27 15:50] VITALS: BP 116/72
== END 2020-06-27 16:00 | disposition left against medical advice (07) ==
LOC: EDUNIT# 15:33 → ER FS 15:34
DX: Z00.00 Encounter for general adult medical examination without abnormal findings (principal); E11.9 Type 2 diabetes mellitus without complications
CPT/HCPCS: 99283

== ENCOUNTER 2020-07-05 17:22 | Emergency (ER) | payer MEDICARE, MEDICAID ==
[~2020-07-05] VITALS: Ht 170.2 cm; Wt 99.8 kg
[2020-07-05 17:26] VITALS: BP 140/86
--- NOTE | 2020-07-05 17:55 | Diagnostic Imaging Report ---
INDICATION: Fell two weeks ago. EXAMINATION: Right forearm at 5:48 p.m. AP and lateral views were obtained. COMPARISON: There is no prior study available for comparison. FINDINGS: There is no fracture, dislocation or acute bony abnormality evident. The elbow and radiocarpal joints are fairly well maintained. There is ulnar minus variance. The soft tissues are unremarkable. IMPRESSION: There is no evidence for an acute bony abnormality. Dictated by: Dictated on workstation # [id number]
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
== END 2020-07-05 18:10 | disposition home or self-care (01) ==
LOC: EDUNIT# 17:22 → ER FS 17:24
DX: S56.911A Strain of unspecified muscles, fascia and tendons at forearm level, right arm, initial encounter (principal); E11.9 Type 2 diabetes mellitus without complications; F17.210 Nicotine dependence, cigarettes, uncomplicated; W18.39XA Other fall on same level, initial encounter
CPT/HCPCS: 73090

== ENCOUNTER 2020-07-20 14:55 | Emergency (ER) | payer MEDICARE, MEDICAID ==
[~2020-07-20] VITALS: Ht 170.2 cm; Wt 91.2 kg
--- NOTE | 2020-07-20 15:15 | ED Upper Extremity ---
General Chief Complaint: Upper Extremity Stated Complaint: LT WRIST INJ Nursing Triage Note: Patient reports he fell off a step this morning and landed on his left wrist. He reports continued pain in his left wrist. Nursing Sepsis Screen: No Definite Risk Source: patient History of Present Illness Date Seen by Provider: Jul 20, 2020 Time Seen by Provider: 14:57 Initial Comments 50-year-old male presenting with complaints of left hand and wrist pain. He states this morning missed a step and fell. He used his left arm to help catch himself. He has had pain since this morning. He has not taken anything for the pain. He reports having a prior fracture to that area when he was younger. He denies any numbness or tingling. He has increased pain with movement especially of his thumb and of his pinky finger. He has pain in the palm over the pinky finger area. There is no bruising or abrasion noted. He has no deformity or swelling noted. Onset: this morning Severity: moderate Pain/Injury Location: left wrist, left hand, left thumb, left 5th finger Method of Injury: fell Modifying Factors: Worse With Movement Allergies and Home Medications Allergies Coded Allergies: No Known Drug Allergies (Unverified , 01/15/19) Home Medications Albuterol Sulfate 1 Puff Puff, 2 PUFF IH Q4H 1 PUFF = 90 MCG Prescribed by: AMBER HERNANDEZ on 09/15/19 1227 Ciprofloxacin HCl 500 Mg Tablet, 500 MG PO BID Prescribed by: IBRAHIMA RACHEL on 03/16/20 1503 Hydrocodone/Acetaminophen 1 Each Tablet, 1 TAB PO Q6H PRN for PAIN-SEVERE (8-10) Prescribed by: JESSE GIRALDO on 07/20/20 1638 Ibuprofen 800 Mg Tablet, 800 MG PO Q8H PRN for PAIN Prescribed by: JESSE GIRALDO on 07/20/20 1637 Loperamide HCl 2 Mg Tablet, 2 MG PO BID PRN Prescribed by: AMBER HERNANDEZ on 02/10/20 1015 Loperamide HCl 2 Mg Capsule, 2 MG PO QID Prescribed by: IBRAHIMA RACHEL on 03/16/20 1503 Metronidazole 500 Mg Tablet, 500 MG PO BID Prescribed by: IBRAHIMA RACHEL on 03/16/20 1503 Ondansetron 4 Mg Tab.rapdis, 4 MG PO TID Prescribed by: AMBER HERNANDEZ on 02/10/20 1015 Ondansetron 4 Mg Tab.rapdis, 4 MG PO Q6H PRN for NAUSEA/VOMITING Prescribed by: IBRAHIMA RACHEL on 03/16/20 1503 Patient Home Medication List Home Medication List Reviewed: Yes Review of Systems Constitutional: No chills, No fever EENTM: no symptoms reported Respiratory: no symptoms reported Cardiovascular: no symptoms reported Gastrointestinal: no symptoms reported Genitourinary: no symptoms reported Musculoskeletal: see HPI Skin: No change in color Psychiatric/Neurological: Denies Numbness, Denies Paresthesia Past Okuiknc-Zcbapm-Bjgybk Hx Past Med/Social Hx: Reviewed Nursing Past Med/Soc Hx Patient Social History Alcohol Use: Occasionally Uses Drug of Choice: Meth, THC Smoking Status: Current Everyday Smoker Type Used: Cigarettes 2nd Hand Smoke Exposure: No Recent Infectious Disease Expo: No Recent Hopitalizations: No Immunizations Up To Date Date of Influenza Vaccine: Nov 17, 2018 Seasonal Allergies Seasonal Allergies: No Past Medical History Surgeries: Yes Abdominal, Bowel Surgery Respiratory: Yes (Tobaccoism) Cardiac: No Neurological: No Sexually Transmitted Disease: No HIV/AIDS: No Genitourinary: No Gastrointestinal: Yes (hx colon resection) Musculoskeletal: Yes Fibromyalgia Endocrine: Yes (DM II) Diabetes, Non-Insulin dep HEENT: No Cancer: Yes Colon Did You Recieve Any Treatments: Yes What Type of Treatment Did You: Chemotherapy, Surgical Intervention Psychosocial: No (Schizo-affective disorder) Schizophrenia Integumentary: No Blood Disorders: No Physical Exam Vital Signs Vital Signs - First Documented 07/20/20 14:58 Temp 36.3 Pulse 102 Resp 18 B/P (MAP) 129/72 (91) Pulse Ox 97 O2 Delivery Room Air Capillary Refill : Less Than 3 Seconds Height, Weight, BMI Height: '" Weight: lbs. oz. kg; 31.00 BMI Method: General Appearance: no apparent distress Cardiovascular: normal peripheral pulses Elbow/Forearm: normal inspection, non-tender, no evidence of injury, normal ROM Wrist: No ecchymosis; Yes limited ROM (on left due to pain), Yes pain (left wrist), Yes soft tissue tenderness (left wrist) Hand: Left, soft tissue tenderness (pain and tenderness left hand from wrist down into the palm and pinky finger) Neurologic/Tendon: normal sensation, normal motor functions Neurologic/Psychiatric: alert, oriented x 3 Skin: normal color, warm/dry Procedures/Interventions Splinting and Joint Reduction : Location: left wrist Pre-Proc Neuro Vasc Exam: normal Post-Proc Neuro Vasc Exam: normal Progress After obtaining verbal consent from patient placed in padded aluminum foam splint for left wrist/hand pain. Counseled on follow up and return precautions. He was neurovascularly intact intact both pre and post splint application. Progress/Results/Core Measures Results/Orders My Orders Orders - JESSE GIRALDO MD Ice: Apply To Affected Area (07/20/20 15:10) Elevate Affected Extremity (07/20/20 15:10) Wrist 3 View Left (07/20/20 15:10) Hand 3 View Left (07/20/20 15:10) Ed Ortho/Other Supplies Order (07/20/20 16:29) Orthopedic Equiment (07/20/20 16:29) Vital Signs/I&O 07/20/20 07/20/20 14:58 16:48 Temp 36.3 Pulse 102 98 Resp 18 18 B/P (MAP) 129/72 (91) 135/81 Pulse Ox 97 97 O2 Delivery Room Air Room Air Blood Pressure Mean: 91 Progress Progress Note #1: Progress Note ice and elevation for the wrist/hand pain. Obtain xrays to look for fracture or dislocation Progress Note #2: Progress Note xrays show triquetrum fracture. splint in volar padded aluminum foam splint with orquidea bandage and advised to check with clinic next week about getting changed over to a cast for 4-6 weeks. Hydrocodone for pain. Ice, rest, elevation. Diagnostic Imaging Diagonstic Imaging: Xray Plain Films/CT/US/NM/MRI: hand (and wrist) Comments [facility], [facility]. [place], [place] NAME: NETTE ARITA [facility] REC#: [id number] PT STATUS: DEP ER : 1970 PHYSICIAN: JESSE GIRALDO MD ADMIT DATE: 07/20/20/ER FS Signed Date of Exam:07/20/20 HAND 3 VIEW LEFT INDICATION: Fall with left hand pain. AP, oblique and lateral views of the left hand are obtained. FINDINGS: No definite fracture is seen within the hands, however there is ossific fragmentation along the dorsum of the carpus which may represent avulsion fracture. This may arise from the triquetrum. Otherwise there is no evidence of abnormal lytic or sclerotic focus. IMPRESSION: Probable dorsal carpal avulsion. This may arise from the triquetrum and clinical correlation site of pain would be useful. Dictated by: Dictated on workstation # [id number] Dict: 07/20/20 1539 Trans: 07/20/20 1655 [id number] [id number] Interpreted by: CURLY SANCHEZ MD Electronically signed by: CURLY SANCHEZ MD 07/20/20 165 [facility] [place] [place] NAME: NETTE ARITA [facility] REC#: [id number] PT STATUS: REG ER : 1970 PHYSICIAN: JESSE GIRALDO MD ADMIT DATE: 07/20/20/ER FS Signed Date of Exam:07/20/20 WRIST 3 VIEW LEFT INDICATION: Left wrist injury from a fall. FINDINGS: Three views of the left wrist show fracture of the dorsal aspect of the triquetrum. The remainder of the carpal bones appear to be intact. IMPRESSION: Fracture of the dorsal cortex of the triquetrum. Dictated by: Dictated on workstation # [id number] Dict: 07/20/20 1541 Trans: 07/20/20 1553 [id number] [id number] Interpreted by: YUE BORGES MD Electronically signed by: YUE BORGES MD 07/20/20 1550 Reviewed: Reviewed by Nj Departure Impression Primary Impression: Fracture of triquetrum of left wrist, closed Qualified Codes: S62.115A - Nondisplaced fracture of triquetrum [cuneiform] bone, left wrist, initial encounter for closed fracture Additional Impression: Fall at home Qualified Codes: W19.XXXA - Unspecified fall, initial encounter; Y92.009 - Unspecified place in unspecified non-institutional (private) residence as the place of occurrence of the external cause Disposition: 01 HOME, SELF-CARE Condition: Stable Departure-Patient Inst. Decision time for Depature: 16:38 Referrals: CORTEZ HERNANDEZ MD (PCP/Family) Primary Care Physician KATHARINE FINNEY MD Patient Instructions: Forearm and Wrist Fractures ED, Splint Care ED Add. Discharge Instructions: Wear splint at all times and keep it clean and dry until seen in clinic for follow up. Call to get appointment early next week for follow up. If Dr. Hernandez can not see you then you can call Dr. Finney and his nurse practitioner Ben Ortiz for follow up by calling [phone]. They will need to change the splint over to a cast next week. If you have worsen ing pain or are not improving then you may need to see a hand/wrist specialist or have further testing done. Use ice 20-30 minutes every few hours to help with pain and swelling. Take medicine for pain. Keep your hand/wrist elevated above heart level as much as possible to help with pain and swelling. All discharge instructions reviewed with patient and/or family. Voiced under standing. Scripts Ibuprofen (Ibuprofen) 800 Mg Tablet 800 MG PO Q8H PRN for PAIN for 10 Days, #30 TAB 0 Refills Prov: JESSE GIRALDO MD 07/20/20 Hydrocodone/Acetaminophen (Hydrocodone-Acetamin 5-325 mg) 1 Each Tablet 1 TAB PO Q6H PRN for PAIN-SEVERE (8-10) for 5 Days, #20 TAB 0 Refills Prov: JESSE GIRALDO MD 07/20/20 JESSE GIRALDO MD Jul 20, 2020 15:15
--- NOTE | 2020-07-20 15:44 | Diagnostic Imaging Report ---
INDICATION: Left wrist injury from a fall. FINDINGS: Three views of the left wrist show fracture of the dorsal aspect of the triquetrum. The remainder of the carpal bones appear to be intact. IMPRESSION: Fracture of the dorsal cortex of the triquetrum. Dictated by: Dictated on workstation # [id number]
--- NOTE | 2020-07-20 15:48 | Diagnostic Imaging Report ---
INDICATION: Fall with left hand pain. AP, oblique and lateral views of the left hand are obtained. FINDINGS: No definite fracture is seen within the hands, however there is ossific fragmentation along the dorsum of the carpus which may represent avulsion fracture. This may arise from the triquetrum. Otherwise there is no evidence of abnormal lytic or sclerotic focus. IMPRESSION: Probable dorsal carpal avulsion. This may arise from the triquetrum and clinical correlation site of pain would be useful. Dictated by: Dictated on workstation # [id number]
[2020-07-20] MEDS ORDERED: IBUP-1780 PO (16:37)
[2020-07-20] MEDS ORDERED: ACHD5005 PO (16:37)
[2020-07-20 16:48] VITALS: BP 135/81
== END 2020-07-20 16:51 | disposition home or self-care (01) ==
LOC: EDUNIT# 14:55 → ER FS 14:57
DX: S62.111A Displaced fracture of triquetrum [cuneiform] bone, right wrist, initial encounter for closed fracture (principal); E11.9 Type 2 diabetes mellitus without complications; F17.210 Nicotine dependence, cigarettes, uncomplicated; Z87.81 Personal history of (healed) traumatic fracture; W10.9XXA Fall (on) (from) unspecified stairs and steps, initial encounter; Y92.009 Unspecified place in unspecified non-institutional (private) residence as the place of occurrence of the external cause
CPT/HCPCS: 73110; 73130

== ENCOUNTER 2021-03-10 21:52 | Emergency (ER) | payer MEDICARE, MEDICAID ==
[~2021-03-10] VITALS: Ht 170.2 cm; Wt 104.3 kg
[~2021-03-10 21:52] MED LIST changes: +ACHD5005 PO; +DICY20TA PO; -DICY20TA10 PO; +IBUP-1780 PO
--- OUTSIDE RECORDS SUMMARY | 2021-03-10 21:58 | XMS REPORT | Clinical Summary ---
Author Author [facility] Organization [facility] Address Unknown Phone Unavailable Care Team Providers Care Inside Sales Territory Manager Name Role Phone Kamille Davis RN Unavailable Unavailable Rhea Akers RN Unavailable Unavailable Nadia Palacio RN Unavailable Unavailable Ernestina Wells MD Unavailable Cristian Ayala MD Unavailable Unavailable Eve Ortiz MD Unavailable Silver Ball MD Unavailable Mary Carmen Ny MD Unavailable No Pcp, Na PCP Unavailable Source Comments Some departments are not documenting in the electronic medical record. If you d o not see the information that you expected, contact Release of Information in [facility] Information Management department at [phone] for further assistan ce in locating additional records.[facility] Allergies No known active allergies Medications End Date Status Medication Sig Dispensed Refills Start Date Active carBAMazepine (TEGRETOL) 200mg po q AM 90 Tab 0 200 mg tablet and 400mg po 4 q HS. Additional Information Patient taking differently: 400 mg Oral TWICE DAILY, (No instructions reported), Informant: Outside Pharmacy, Reported on 07/28/2017 Active paliperidone(+) (INVEGA) Take 1 Tab by 30 Tab 0 9 mg tablet mouth daily. 4 In morning Additional Information Patient taking differently: 1 tablet Oral AT BEDTIME DAILY, Taking with 3 mg tablet to total 12 mg QHS, Informant: Outside Pharmacy, Reported on 07/28/2017 Active citalopram (CELEXA) 40 mg Take 1 Tab by 90 Tab 1 tablet mouth daily. 4 Additional Information Patient taking differently: 40 mg Oral AT BEDTIME DAILY, Informant: Outside Pharmacy, Reported on 07/28/2017 Active benztropine (COGENTIN) 1 Take 1 Tab by 30 Tab 0 mg tablet mouth at 4 bedtime daily. Active dexamethasone (DECADRON) Take 1 tablet 30 tablet 4 4 mg tablet by mouth 8 twice daily. On days 2-3 following chemotherapy. Do not take after 6pm to avoid trouble sleeping. Active ondansetron (ZOFRAN) 8 mg Take 1 tablet 30 tablet 4 tablet by mouth 8 twice daily. On days 2-3 following chemotherapy. Then q 8 hours PRN for nausea and vomiting. Active paliperidone ER(+) Take 3 mg by 0 (INVEGA) 3 mg tablet mouth at bedtime daily. Taken with 9 mg tablet to total 12 mg QHS Active LORazepam (ATIVAN) 0.5 mg Take one 60 tablet 4 tablet tablet by 8 mouth every 6 hours as needed. For nausea and vomiting not relieved by Zofran. May also use every 6 hours for insomnia and anxiety. Active cetirizine (ZYRTEC) 10 mg Take 10 mg by 0 tablet mouth every morning. Active HYDROcodone/acetaminophen Take one 30 tablet 0 (NORCO) 5/325 mg tablet tablet by 9 mouth every 12 hours as needed for Pain Active ergocalciferol (VITAMIN Take one cap 12 capsule 0 0 D-2) 50,000 unit capsule by mouth 9 every 7 days for 12 weeks. Then start the 10,000 weekly. Active cholecalciferol (vitamin Take one 12 tablet 3 0 D3) 10,000 unit tab tablet by 9 mouth every 7 days. Take one tablet by mouth every 7days after finishing the Ergocalcifero l. Active VENTOLIN HFA 90 INHALE 2 54 g 0 mcg/actuation PUFFS EVERY 6 9 inhalerIndications: HOURS Malignant neoplasm of NEEDED FOR colon, unspecified part WHEEZING OR of colon (HCC), Cough, SHORTNESS OF Upper respiratory tract BREATH. SHAKE infection, unspecified WELL BEFORE type USE Active peg 3350-electrolytes Mix as 4000 mL 0 07/0 (GOLYTELY) 236-22.74-6.74 directed on 1 -5.86 gram oral package. solutionIndications: Drink 240ml bowel evacuation (8oz) every 10 minutes until gone. Refrigerate once mixed. Indications: emptying of the bowel Active Problems Problem Noted Date Malignant neoplasm of colon 05/23/2017 Colon cancer 04/28/2017 Cancer Staging: Clinical: Unsigned Pathologic stage from 05/23/2017: Stage I IIC (pT4b, pN1b, cM0) - Signed by Jin Ghotra MD on 05/23/2017 Overview: Formatting of this note is different fr om the original. 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 Presented to [facility] at [facility] with abdominal pain and constipation, no BM for [address] sca n 03/27/17 and [facility] for squat revealed eccentric mass surroundi ng the transverse colon/splenic flexure. 5.9 x 2.8 x 7 cm. Multiple c olonoscopies were attempted however not been able to be completed due to po or prep. He visited with Dr. Xie on 04/18/17 and underwent extend ed right hemicolectomy with jejunal resection on 05/01/17. Pathology reveal ed mucinous adenocarcinoma of the ascending colon with invasion of the sm all bowel (jejunum) and present on serosal surface. High-grade morphology but reported as poorly differentiated due to MSI. Margins neg ative. No LV I. No PNI. Final pathologic staging [id number]. 04/18/17 CT chest without contrast reveal ed scattered small mediastinal lymph nodes which are probably reactive. Mini mal emphysema and scattered areas of scarring throughout the lungs. PLAN: We reviewed the diagnosis, staging, dis ease biology, prognosis, treatment options and goal of treatment. We discu ssed that the patient has stage III cancer and that our goal of treatment w ould be curative intent with surgery followed by adjuvant therapy. I discus sed standard adjuvant therapy with FOLFOX for 6 months for high risk stage III colon cancer versus aligns clinical trial investigating FOLFOX wit h or without Atezo in the setting of MSI high. He is very interested in the clinical trial and hence alerted clinical trial coordinator. He will di scuss with his family in regards to clinical trial. If he perceives clinic al trial then patient will pursue treatment at our cancer center. Howeve r if he pursue standard treatment then he could receive chemotherapy clos e to home versus here. If he decides on pursuing treatment here then we will have him return to clinic on 06/16/17 for chemotherapy. Of note, he will also need a complete c -scope after completing adjuvant chemo He declined the clinical trial. Started cycle 1 on 06/16/17 FOLFOX cycle 2 FOLFOX 06/30/17 and cycle 3 on . Cycle 4 delayed due to neutropenia then pt cancellation. cycle 4 on 09/08/2017. Cycle 5 on 09/23. Cycle 6 on 10/13/17. Reports neulasta in duced malaise and aches. Trial of Zyrtec. Labs stable and patient tolerat ing treatment well. Proceed with cycle 7 of adjuvant FOLFOX today 10/27/2017 and RTC in 2 weeks with labs and cycle 8. Imaging after ad juvant therapy done. Colonic mass 03/31/2017 Encounter for long-term (current) use of high-risk me dication 02/02/2013 Scrotal abscess 08/18/2012 Last Assessment & Plan: Formatting of this note might be differ ent from the original. A: Patient's scrotal abscess most likel y represents infected sebaceous cyst. Status: Improving slowly. Decrea sed in size from quarter to dime size. P: 1. Take Bactrim DS 1 pill BID for 1 mon th for infected sebaceous cyst. 2. Percocet 1 pill prn pain given for l eft scrotal pain. 3. RTC 1 month for f/u for infected francesca aceous cyst. 4. Sit in tub of warm water for 10-15 m inutes 1-2 times per day to clean area and air dry afterwards with fan or hairdryer. Tobacco abuse 05/16/2012 Low back pain 01/28/2012 Overview: Formatting of this note might be differ ent from the original. I discussed my approach to back pain wh ich differs from his previous Dr. Dumont BID x 2 weeks with food. Norc o 7.5/325mg prn, #60 with 1 RF, Flexeril, #30. The latter two are for prn use. Ice/heat. Keep moving, no bedrest. Will start PT in a few weeks. Our goal is to decrease the frequency of these episodes with core s trengthening and education on proper lifting. 02/25/12: Discussed need for him to be p ro-active with his PT. Will try to get this arranged again today. #60 Nor co given wit q 8 prn sig. Again discussed that meds will be episodic an d that our goal is to decrease episodes of back pain. F/U 1 month. 03/29/12: I am not sure why he has not yet been scheduled for PT. I will try to have someone schedule this befor e he leaves today. Again I emphasized the necessity of smoking diane sation to optimize his pain control. I set a goal for him to walk 3x/week an d to have decreased his cigar usage to 3-4 by our follow-up next month. Ho pefully PT will have begun in the interim. Schizoaffective disorder 01/28/2012 Overview: Formatting of this note might be differ ent from the original. Chris. [facility]. Disa bled. BMI 36.0-36.9,adult 01/28/2012 Overview: Formatting of this note might be differ ent from the original. Pt encouraged to walk 30 minutes 5 days per week. He will return for physical and blood work. Immunizations Name Administration Dates Next Due Tdap Vaccine 11/14/2013 Surgical History Surgery Date Site/Laterality Comments CYST REMOVAL 09/18/2012 HEMORRHOIDECTOMY COLECTOMY 05/01/2017 Abdomen/Right EXPLORATORY LAP AROTOMY, EXTENDED RIGHT HEMICOLECTOMY, JEJUNAL RESECTION, ILEO RESECTION performed by Mayco Xie DO at [facility] OR/Periop COLONOSCOPY 08/25/2020 N/A COLONOSCOPY DENNIS GNOSTIC WITH SPECIMEN COLLECTION BY BRUSHING/ WASHING - FLEXIBLE performed by Georgi Kessler MD at [facility] ENDO BIOPSY 08/25/2020 COLONOSCOPY WITH BI OPSY - FLEXIBLE performed by Georgi Kessler MD at [facility] ENDO COLONOSCOPY 08/25/2020 COLONOSCOPY WITH SN ARE REMOVAL TUMOR/ POLYP/ OTHER LESION performed by Georgi Kessler MD at [facility] ENDO TUNNELED VENOUS PORT 09/05/2020 Right per IR REMOVAL Medical History Medical History Date Comments Bipolar affective disorder (HCC) Schizoaffective disorder (HCC) Depression (disease) GERD (gastroesophageal reflux disease) Cancer (HCC) colon cancer DM (diabetes mellitus) (HCC) Family History Medical History Relation Name Comments Cancer Father prostate Cancer-Prostate Father Diabetes Father Heart Attack Father Heart Disease Father Vision Loss Father Early Maternal Grandfather Cancer Maternal Grandmother Cancer Mother breast Heart Disease Mother High Cholesterol Mother Alzheimer's Paternal Grandmother Relation Name Status Comments Father Alive Maternal Grandfather Maternal Grandmother Mother Alive Paternal Grandmother Social History Date Tobacco Use Types Packs/Day Years Used Current Every Day Smoker Cigars, 1 32 Cigarettes Smokeless Tobacco: Never Used Tobacco Cessation: Ready to Quit: No; Co unseling Given: Yes Comments: 4 cigars/day; someday cigarette smoker Comments Alcohol Use Standard Drinks/Week No 0 (1 standard drink = 0.6 o z pure alcohol) Sex Assigned at Date Recorded 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 Last Filed Vital Signs Reading Time Taken Comments Vital Sign 107/71 09/05/2020 12:00 PM CDT Blood Pressure 77 09/05/2020 12:00 PM CDT Pulse 36.4 C (97.6 F) 09/05/2020 11:36 AM CDT Temperature 18 08/30/2020 2:43 PM CDT Respiratory Rate 92% 09/05/2020 12:00 PM CDT Oxygen Saturation - - Inhaled Oxygen Concentration 102.1 kg (225 lb) 09/05/2020 10:19 AM CDT Weight 170.2 cm (5' 7") 09/05/2020 10:19 AM CDT Height 35.24 09/05/2020 10:19 AM CDT Body Mass Index Plan of Treatment Health Maintenance Due Date Last Done Comments MEDICARE ANNUAL WELLNESS 1970 VISIT HIV SCREENING 05/21/1983 HEPATITIS C SCREENING 1986 PHYSICAL (COMPREHENSIVE) 1986 EXAM SHINGLES RECOMBINANT 2018 VACCINE (1 of 2) INFLUENZA VACCINE 09/17/2020 10/18/2013 (Previously completed), 11/26/2012, 01/28/2012 (Declined) DTAP/TDAP VACCINES (2 - 11/15/2023 11/14/2013 Td or Tdap) COLORECTAL CANCER 08/25/2030 08/25/2020, SCREENING 08/25/2020, 08/25/2020, Additional history exists Implants Device Identifier Shelf Expiration Date Model / Serial / L ot Explanted Type Area Manufactur er [id number] 03/19/2018 [id number] / N/A / [id number] Port Implantable 8 Float Point Unit Right: Chest C R Siom Intermediate - Sn/A Wall BARD:ACCES Implanted: Qty: 1 on 06/10/2017 by Davon Cruz MD at [facility] Explanted: Qty: 1 on 09/05/2020 by Marcel Sanchez MD Description: POWERPORT, right IJ, verified via CT Radio Division Lieutenant from 03/16/2018 and IR intra-procedure documentation upon insertion.-REI RN Results Not on filefrom Last 3 Months Insurance Type Payer Benefit Subscriber ID Effective Phone Address Plan / Dates Group Medicare MEDICARE MEDICARE [id number] 2009-P [phone] [address] [place] [address] A[employer]NA MEDICAID AETNA [id number] 2020-P [phone] [address] [place] [address] [place] [address] (Home) [place], [place] [address] 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 04/28/2017 2:37 PM Full Code 04/28/2017 12:32 PM Provider has discussed Code Status Yes w/Patient or Family? Care Teams Start Date End Date Inside Sales Territory Manager Relationship Specialty 04/21/17 No Pcp, Na PCP - General 12/18/09 Kamille Davis, SATNAM 09/07/10 Rhea Akers, SATNAM Emergency Medicine 11/30/11 Nadia Palacio, SATNAM 01/28/12 Ernestina Wells MD Family 1995 [facility] [address] [place], [place] [id number] 08/18/12 Cristian Ayala MD Urology Retired 10/12/12 Eve Ortiz MD Family [address], [place] [address] 10/12/12 Silver Ball MD Family [address] [address] 11/16/13 Mary Carmen Ny MD Family [address] [facility] [address] [place] [address]
--- NOTE | 2021-03-10 22:05 | ED General ---
General Stated Complaint: HEADACHE/BODY ACHES Source of Information: Patient, EMS Exam Limitations: No Limitations History of Present Illness Date Seen by Provider: Mar 10, 2021 Time Seen by Provider: 21:56 Initial Comments 50-year-old male with past medical history of mental health issues coming in via EMS from home due to 2 days of body aches and nonproductive cough. Has not taken any medications for the pain. Nothing seems to make it better or worse. Has been eating and drinking okay. Denying any nausea, vomiting, diarrhea, chest pain, shortness of breath, abdominal pain, or any other concerns. He says it feels it is as if someone is pumping in a gas into his house that is making him have body aches. He is denying any thoughts to harm himself or harm anyone else Allergies and Home Medications Allergies Coded Allergies: No Known Drug Allergies (Unverified , 01/15/19) Patient Home Medication List Home Medication List Reviewed: Yes Albuterol Sulfate (Proair Hfa) 1 Puff Puff, 2 PUFF IH Q4H Prescribed by: AMBER HERNANDEZ on 09/15/19 1227 Asenapine Maleate (Saphris) 5 Mg Tab.subl, (Reported) Entered as Reported by: DANIELLE HARRIS on 09/15/19 1313 Benztropine Mesylate (Benztropine Mesylate) 1 Mg Tablet, (Reported) Entered as Reported by: CHRISTINE PEREYRA on 04/27/19 1155 Carbamazepine (Carbamazepine) 200 Mg Tablet, (Reported) Entered as Reported by: CHRISTINE PERYERA on 04/27/19 1155 Ciprofloxacin HCl (Ciprofloxacin HCl) 500 Mg Tablet, 500 MG PO BID Prescribed by: IBRAHIMA RACHEL on 03/16/20 1503 Citalopram Hydrobromide (Celexa) 40 Mg Tablet, (Reported) Entered as Reported by: CHRISTINE PEREYRA on 04/27/19 1155 Gabapentin (Gabapentin) 300 Mg Capsule, (Reported) Entered as Reported by: CHRISTINE PEREYRA on 04/27/19 1155 Hydrocodone/Acetaminophen (Hydrocodone-Acetamin 5-325 mg) 1 Each Tablet, 1 TAB PO Q6H PRN for PAIN-SEVERE (8-10) Prescribed by: JESSE GIRALDO on 07/20/20 1638 Ibuprofen (Ibuprofen) 800 Mg Tablet, 800 MG PO Q8H PRN for PAIN Prescribed by: JESSE GIRALDO on 07/20/20 1637 Loperamide HCl (Imodium A-D) 2 Mg Tablet, 2 MG PO BID PRN Prescribed by: AMBER HERNANDEZ on 02/10/20 1015 Loperamide HCl (Loperamide) 2 Mg Capsule, 2 MG PO QID Prescribed by: IBRAHIMA RACHEL on 03/16/20 1503 Metformin HCl (Metformin HCl) 1,000 Mg Tablet, (Reported) Entered as Reported by: CHRISTINE PEREYRA on 04/27/19 1155 Metronidazole (Metronidazole) 500 Mg Tablet, 500 MG PO BID Prescribed by: IBRAHIMA RACHEL on 03/16/20 1503 Ondansetron (Ondansetron Odt) 4 Mg Tab.rapdis, 4 MG PO TID Prescribed by: AMBER HERNANDEZ on 02/10/20 1015 Ondansetron (Ondansetron Odt) 4 Mg Tab.rapdis, 4 MG PO Q6H PRN for NAUSEA/VOMITING Prescribed by: IBRAHIMA RACHEL on 03/16/20 1503 Paliperidone (Invega) 9 Mg Tablet.sa, (Reported) Entered as Reported by: DANIELLE HARRIS on 09/15/19 1313 Rosuvastatin Calcium (Rosuvastatin Calcium) 40 Mg Tablet, (Reported) Entered as Reported by: CHRISTINE PEREYRA on 04/27/19 1155 Review of Systems Review of Systems Constitutional: chills; No fever; malaise EENTM: No blurred vision Respiratory: cough; No short of breath Cardiovascular: No chest pain Gastrointestinal: No abdominal pain, No diarrhea, No nausea, No vomiting Genitourinary: No dysuria Musculoskeletal: no symptoms reported Skin: no symptoms reported Psychiatric/Neurological: No Symptoms Reported Hematologic/Lymphatic: No Symptoms Reported Immunological/Allergic: no symptoms reported All Other Systems Reviewed Negative Unless Noted: Yes Past Hcsaeku-Zqudew-Qskehq Hx Patient Social History Substance use?: No Seasonal Allergies Seasonal Allergies: No Past Medical History Surgeries: Yes Abdominal, Bowel Surgery Respiratory: Yes (Tobaccoism) Cardiac: No Neurological: No Sexually Transmitted Disease: No HIV/AIDS: No Genitourinary: No Gastrointestinal: Yes (hx colon resection) Musculoskeletal: Yes Fibromyalgia Endocrine: Yes (DM II) Diabetes, Non-Insulin dep HEENT: No Cancer: Yes Colon Did You Recieve Any Treatments: Yes What Type of Treatment Did You: Chemotherapy, Surgical Intervention Psychosocial: No (Schizo-affective disorder) Schizophrenia Integumentary: No Blood Disorders: No Physical Exam Vital Signs Vital Signs - First Documented 03/10/21 21:55 Temp 37.1 Pulse 106 Resp 17 B/P (MAP) 137/68 (91) O2 Delivery Room Air Capillary Refill : Height, Weight, BMI Height: '" Weight: lbs. oz. kg; 31.00 BMI Method: General Appearance: No Apparent Distress, WD/WN Eyes: Bilateral Eye Normal Inspection HEENT: PERRL/EOMI, Normal ENT Inspection, Pharynx Normal, Other (No meningismus) Neck: Full Range of Motion, Normal Inspection, Non Tender, Supple Respiratory: Chest Non Tender, Lungs Clear, Normal Breath Sounds, No Accessory Muscle Use, No Respiratory Distress Cardiovascular: Regular Rate, Rhythm, No Edema, Normal Peripheral Pulses Gastrointestinal: Normal Bowel Sounds, Non Tender, Soft Back: Normal Inspection, No CVA Tenderness, No Vertebral Tenderness Extremity: Normal Capillary Refill, Normal Inspection, Normal Range of Motion, Non Tender, No Calf Tenderness Neurologic/Psychiatric: Alert, Oriented x3, No Motor/Sensory Deficits, Normal Mood/Affect Skin: Normal Color, Warm/Dry Lymphatic: No Adenopathy Progress/Results/Core Measures Suspected Sepsis SIRS Temperature: Pulse: Respiratory Rate: Blood Pressure / Mean: Results/Orders Lab Results Laboratory Tests Test 03/10/21 22:01 Range/Units Influenza Type A Antigen NEGATIVE NEGATIVE Influenza Type B Antigen NEGATIVE NEGATIVE My Orders Orders - AMILCAR HARRISON MD Covid 19 Inhouse Test (03/10/21 22:01) Ibuprofen Tablet (Motrin Tablet) (03/10/21 22:15) Influenza A & B Antigens (03/10/21 22:12) Acetaminophen Tablet (Tylenol Tablet) (03/10/21 22:30) Prochlorperazine Injection (Compazine In (03/10/21 22:22) Diphenhydramine Injection (Benadryl Inje (03/10/21 22:30) Medications Given in ED Current Medications Medications Dose Ordered Sig/Grace Route Start Time Stop Time Status Last Admin Dose Admin Acetaminophen 1,000 mg ONCE ONCE PO 03/10/21 22:30 03/10/21 22:31 DC 03/10/21 22:28 1,000 MG Diphenhydramine HCl 12.5 mg ONCE ONCE IM 03/10/21 22:30 03/10/21 22:31 DC 03/10/21 22:28 12.5 MG Ibuprofen 600 mg ONCE ONCE PO 03/10/21 22:15 03/10/21 22:16 DC 03/10/21 22:05 600 MG Vital Signs/I&O 03/10/21 03/10/21 21:55 21:55 Temp 37.1 Pulse 106 Resp 17 B/P (MAP) 137/68 (91) O2 Delivery Room Air Room Air Capillary Refill : Progress Note : Progress Note 50-year-old male with above history coming in due to cough and body aches for 2 days. ABCs were intact and vitals were stable on presentation. Physical exam reassuring with no acute abnormalities. Upon asking questions to the patient, he says he really does not want to answer any questions, even though he came via EMS to be evaluated in the emergency department. He is overall fairly confrontational. He is willing to undergo COVID and influenza testing. Flu testing came back negative. He also was willing to take ibuprofen for his body aches. He is tolerating p.o. without difficulty and is nontoxic-appearing. Has no clinical signs of meningitis including he is completely alert and oriented and has no meningismus. I believe he is stable for discharge with outpatient follow-up. He was sent home with strict return precautions. At the time of leaving, he was saying he feels better. Departure Impression Primary Impression: Person under investigation for COVID-19 Disposition: 01 HOME, SELF-CARE Condition: Stable Departure-Patient Inst. Decision time for Depature: 22:55 Referrals: SELF,CORTEZ BILL (PCP/Family) Primary Care Physician Patient Instructions: COVID-19 ED Add. Discharge Instructions: You were seen in the emergency department for body aches, cough, headache. You most likely have a flulike illness such as COVID. The COVID test will come back by morning. Take ibuprofen 600 mg every 6 hours as needed for pain as well as Tylenol 1000 mg every 6-8 hours if you need. Drink plenty of water. This is caused by a virus that will pass with time, and is not caused by anybody trying to harm you. AMILCAR HARRISON MD Mar 10, 2021 22:05
[2021-03-10] MEDS ORDERED: IBUPROFEN 600 MG (MOTRIN) TAB PO ONE (22:15)
[2021-03-10] MEDS ORDERED: PROCHLORPERAZINE 10 MG/2ML INJ (COMPAZINE) IM STA (22:22)
[2021-03-10] MEDS ORDERED: diphenhydrAMINE 50 MG/ML INJ (BENADRYL) IM ONE (22:30)
[2021-03-10] MEDS ORDERED: ACETAMINOPHEN 500 MG TAB (TYLENOL) PO ONE (22:30)
[2021-03-10 22:57] VITALS: BP 133/71
== END 2021-03-10 22:57 | disposition home or self-care (01) ==
LOC: EDUNIT# 21:52 → ER FS 21:55
DX: U07.1 COVID-19 (principal); E11.9 Type 2 diabetes mellitus without complications; F20.9 Schizophrenia, unspecified; Z79.84 Long term (current) use of oral hypoglycemic drugs; Z79.899 Other long term (current) drug therapy
CPT/HCPCS: 87636; 87804; 96372